=== PATIENT | female | born 1935 | race Caucasian/White ===

== ENCOUNTER → 2017-06-15 | Outpatient (CLI) | payer OTHER ==
[~2017-06-15] MED LIST: ATOR40TA PO; Adult Low Dose81 MG PO; CLOP75 PO; CRUTCH USE; Cipro500 MG PO; Colace100 MG PO; HIGH BP MED PO; HYDGUAL120 PO; IBUP800 PO; LEVE500 PO; LEVFLO500 PO; LISI20 PO; Lasix20 MG PO; METO100ER PO; METO50ER; METO50ER PO; NAPR220; NAPR220 PO; NITR100CA PO; OXYACE5T PO; PSYL5.85P PO; SULTRIDS PO; TRAM50 PO; VERA100; VERA100 PO; Verapamil ER100 MG PO; Verapamil ER200 MG PO
[2017-06-17 12:03] LABS: HPV Genotype 16 Not Detected (NOTDET); HPV Genotype 18 Not Detected (NOTDET)
[2017-06-22 19:18] LABS: HPV High Risk Other Not Detected (NOTDET)
[2017-06-27 12:16] LABS: Source CERVIX
== END | disposition home or self-care (01) ==
LOC: LAB SHORT 17:31 → OLS 17:31
PROVIDERS: Nurse Practitioner Women's Health
DX: Z12.72 Encounter for screening for malignant neoplasm of vagina (principal); Z91.89 Other specified personal risk factors, not elsewhere classified
CPT/HCPCS: 87624; G0123

== ENCOUNTER → 2018-06-19 | Outpatient (CLI) | payer OTHER ==
[2018-06-21 15:06] LABS: HPV 16 Negative (Negative); HPV 18 Negative (Negative); HPV OTHER HR TYPES Negative (Negative)
== END | disposition home or self-care (01) ==
LOC: LAB SHORT 17:38 → LAB 17:38
PROVIDERS: Nurse Practitioner Women's Health
DX: Z12.72 Encounter for screening for malignant neoplasm of vagina (principal); Z91.89 Other specified personal risk factors, not elsewhere classified
CPT/HCPCS: 87624; G0123

== ENCOUNTER 2019-02-04 07:34 | Observation (INO) | payer OTHER ==
[~2019-02-04] VITALS: Ht 152.4 cm; Wt 61.2 kg
[2019-02-04 07:54] LABS: BASOPHILS ABSOLUTE AUTO 0.05 K/mm3 (0.00-0.23); BASOPHILS PERCENT AUTO 1 % (0-2); EOSINOPHILS ABSOLUTE AUTO 0.21 K/mm3 (0.00-0.68); EOSINOPHILS PERCENT AUTO 3 % (0-6); Hematocrit 35.3 % (33.0-51.0); Hemoglobin 11.3 g/dL (11.5-16.0); IMMATURE GRAN ABSOLUTE AUTO 0.01 K/mm3 (0.00-0.10); IMMATURE GRAN PERCENT AUTO 0 % (0-1); LYMPHOCYTES ABSOLUTE AUTO 2.28 K/mm3 (0.84-5.20); LYMPHOCYTES PERCENT AUTO 37 % (21-46); MONOCYTES PERCENT AUTO 11 % (4-13); Mean Corpuscular HGB 32.9 pg (26.0-34.0); Mean Corpuscular Volume 103 fL (80-100); Mean Platelet Volume 8.9 fL (9.1-12.4); NEUTROPHILS ABSOLUTE AUTO 2.91 K/mm3 (1.96-9.15); NEUTROPHILS PERCENT AUTO 47 % (41-73); Platelet Count 164 K/mm3 (150-400); RDW Coefficient Variation 14.4 % (11.7-14.2); RDW Standard Deviation 54.6 fL (35.1-46.3); Red Blood Cell Count 3.43 M/mm3 (3.80-5.20); White Blood Cell Count 6.16 K/mm3 (4.00-11.30)
[2019-02-04 08:10] LABS: International Normalized Ratio 1.08; Prothrombin Time Results 11.4 Sec (9.7-11.5)
[2019-02-04] MEDS ORDERED: ZESTRIL40 M1 PO (08:12)
[2019-02-04] MEDS ORDERED: AMLODIPINE BESYL5 MG PO (08:12)
[2019-02-04] MEDS ORDERED: Keppra750 MG PO (08:12)
[2019-02-04] MEDS ORDERED: ATORVASTATIN CA40 MG PO (08:12)
[2019-02-04 08:15] LABS: Alanine Aminotransfer (ALT/SGP 29 U/L (12-78); Albumin, Blood 3.4 g/dL (3.4-5.0); Albumin/Globulin Ratio 1.1 (0.8-1.8); Alk Phos 97 U/L (50-136); Anion Gap 6 mmol/L (6-16); Aspartate Aminotrans (AST/SGOT 26 U/L (12-37); Blood Urea Nitrogen 12 mg/dL (8-24); Bun/Creatinine Ratio 16.7 (12.0-20.0); CO2, Blood 25 mmol/L (21-32); Calcium, Blood 8.9 mg/dL (8.5-10.1); Chloride, Blood 115 mmol/L (98-108); Creatinine, Blood 0.72 mg/dL (0.40-1.00); Glomerular Filtration Rate >60 (60-); Glucose, Blood 87 mg/dL (70-99); Potassium, Blood 3.4 mmol/L (3.5-5.5); Sodium, Blood 146 mmol/L (136-145); Total Protein, Blood 6.4 g/dL (6.4-8.2)
[2019-02-04] MEDS ORDERED: Flonase 0.05% N16 GM (11:46)
[2019-02-04] MEDS ORDERED: METO50ER PO (11:47)
[2019-02-04] MEDS ORDERED: FURO20 PO (11:50)
[2019-02-04 15:21] LABS: Source, Urine Clean Catch
[2019-02-04 15:25] LABS: Bilirubin, Urine Neg (Neg); Blood, Urine 1+ (Neg); Glucose Qualitative, Urine Neg (Neg); Ketones, Urine 1+ (Neg); Leukocyte Esterase, Urine Neg (Neg); Nitrite, Urine Neg (Neg); Protein, Urine Neg (Neg); Urobilinogen, Urine NORM (Normal)
[2019-02-04 15:55] LABS: Appearance, Urine Clear (Clear); Color, Urine Pale Yellow (P-Yellow)
[2019-02-04 15:57] LABS: Bacteria Not Seen /hpf; Red Blood Cells, Urine 0-2 /hpf (0-2); Squamous Epithelial Cells Not Seen /hpf (Few); White Blood Cells, Urine Not Seen /hpf (0-5)
--- NOTE | 2019-02-04 18:12 | NUR ---
CALLED DR GALLARDO- PT SBP 187 BUT HR 43. UNABLE TO GIVE METOPROLOL PER PREVIOUSLY ESTABLISHED PARAMETERS. METOPROLOL HELD, DR AWARE. NEW ORDER FOR PRN HYDRALIZINE FOR SBP GREATER THAN 190.
--- NOTE | 2019-02-04 18:40 | NUR ---
SHIFT SUMMARY- PT ADMITTED THROUGH THE ED. PT HAD EKG IN THE ED AFIB IN THE 50'S. PT PLACED ON TELE ON MED FLOOR AFIB cBBB 42-48. PT DENIES PAIN OR SOB. FAMLY STATES SHE HAS HAD AN INCREASE IN WEAKNESS OVER THE LAST FEW WEEKS. PT WAS BROUGHT IN AND ADMITTED FOR TIA. PT WEARING HER GLASSES HAS DIPLOPIA IF THEY ARE REMOVED, THIS IS CHRONIC. PT C/O IRRITATION AND PLUGGED EARS, LEFT EAR APEARS RED AND IRRITATED WHEN VIEWED WITH THE OTOSCOPE. PT STATED THAT HER RIGHT EAR IS HER GOOD EAR, THE EAR DRUM CAN NOT BE SEEN WITH THE OTOSCOPE. PT STATED SHE CANT HEAR WITHOUT HER HEARING AID. PT STATED SHE IS DEF IN THE LEFT EAR. 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 PT HAS BEEN UP TO THE BSC, HR INCREASED TO 64 WITH ACTIVITY, THEN WENT RIGHT BACK TO THE 40'S WHEN AT REST. PT LAST VITALS WERE HIGH DR NOTIFIED. SEE PREVIOUS NOTES FOR DETAILS. PT ALERT AND ORIENTED, POOR HISTORIAN. FAMILY AT THE BEDSIDE.
--- NOTE | 2019-02-05 06:21 | NUR ---
DR Giraldo updated PT has pulse as low as 36 and only as high as 43 this shift. TIA S?SX have resolved. Continued in AFIB BBB. No cardiac meds given this shift. Has Otf at HS. Denies acute distress. Speech clear. Mild cognitive deficits but pleasant and able to discuss some hx. Has echocardiogram pending.
[2019-02-05] MEDS ORDERED: FURO20 PO (11:55)
[2019-02-05] MEDS ORDERED: METO25ER PO (11:57)
[2019-02-05] MEDS ORDERED: AMOCLA875 PO (11:58)
--- NOTE | 2019-02-05 12:20 | NUR ---
PATIENT D/C'D TO HOME WITH SPOUSE. RX MEDICATIONS FAXED TO [facility]. D/C INSTRUCTIONS AND EDUCATION DISCUSSED WITH PATIENT AND COPY PROVIDED. MESSAGE LEFT WITH PCP'S SCHEDULING OFFICE, THEY ARE TO CALL PATIENT AT HOME WITH A FOLLOW UP APPT. PATIENT DENIES ANY FURTHER QUESTIONS OR CONCERNS.
== END 2019-02-05 12:24 | disposition home or self-care (01) ==
LOC: ER 07:34 → MEDS 07:35 → ENPENDDIS 02-05 10:50 → MEDS 02-05 12:24
PROVIDERS: Emergency Medicine; ADMIT Hospitalist
DX: R53.1 Weakness (principal); R35.0 Frequency of micturition; H70.91 Unspecified mastoiditis, right ear; I48.0 Paroxysmal atrial fibrillation; I25.10 Atherosclerotic heart disease of native coronary artery without angina pectoris; G45.9 Transient cerebral ischemic attack, unspecified; G31.84 Mild cognitive impairment of uncertain or unknown etiology; I10 Essential (primary) hypertension; M85.80 Other specified disorders of bone density and structure, unspecified site; Z93.0 Tracheostomy status; Z86.73 Personal history of transient ischemic attack (TIA), and cerebral infarction without residual deficits; Z88.1 Allergy status to other antibiotic agents; Z88.2 Allergy status to sulfonamides; Z88.5 Allergy status to narcotic agent; Z79.51 Long term (current) use of inhaled steroids; Z79.899 Other long term (current) drug therapy
CPT/HCPCS: 70450; 70496; 70551; 80053; 81001; 85025; 85610; 85730; 93005; 93010; 96372; 97110; 97161; 97165; 97535; 99285-25; G0378; J1650; Q9967

== ENCOUNTER 2019-05-05 08:51 | Inpatient (IN) | payer OTHER ==
[~2019-05-05] VITALS: Ht 152.4 cm; Wt 56.0 kg
[~2019-05-05 08:51] MED LIST changes: +AMLO10 PO; +AMOCLA875 PO; +ATORVASTATIN CA40 MG PO; +FURO20 PO; +Flonase 0.05% N16 GM; +Keppra750 MG PO; +METO25ER PO; +ZESTRIL40 M1 PO
[2019-05-05 10:42] LABS: BASOPHILS ABSOLUTE AUTO 0.04 K/mm3 (0.00-0.23); BASOPHILS PERCENT AUTO 0 % (0-2); EOSINOPHILS ABSOLUTE AUTO 0.01 K/mm3 (0.00-0.68); EOSINOPHILS PERCENT AUTO 0 % (0-6); Hematocrit 32.9 % (33.0-51.0); Hemoglobin 10.7 g/dL (11.5-16.0); IMMATURE GRAN ABSOLUTE AUTO 0.03 K/mm3 (0.00-0.10); IMMATURE GRAN PERCENT AUTO 0 % (0-1); LYMPHOCYTES ABSOLUTE AUTO 0.93 K/mm3 (0.84-5.20); LYMPHOCYTES PERCENT AUTO 9 % (21-46); MONOCYTES ABSOLUTE AUTO 0.54 K/mm3 (0.16-1.47); MONOCYTES PERCENT AUTO 5 % (4-13); Mean Corpuscular HGB Conc 32.5 g/dL (31.5-36.5); Mean Corpuscular Volume 102 fL (80-100); Mean Platelet Volume 9.4 fL (9.1-12.4); NEUTROPHILS ABSOLUTE AUTO 9.31 K/mm3 (1.96-9.15); NEUTROPHILS PERCENT AUTO 86 % (41-73); Platelet Count 196 K/mm3 (150-400); RDW Coefficient Variation 14.5 % (11.7-14.2); RDW Standard Deviation 54.2 fL (35.1-46.3); Red Blood Cell Count 3.24 M/mm3 (3.80-5.20); White Blood Cell Count 10.86 K/mm3 (4.00-11.30)
[2019-05-05] MEDS ORDERED: ELIQUIS2.5 M1 PO (10:43)
[2019-05-05 11:03] LABS: Alanine Aminotransfer (ALT/SGP 27 U/L (12-78); Albumin, Blood 3.8 g/dL (3.4-5.0); Alk Phos 97 U/L (50-136); Anion Gap 5 mmol/L (6-16); Aspartate Aminotrans (AST/SGOT 30 U/L (12-37); Bilirubin, Total 1.2 mg/dL (0.1-1.0); Blood Urea Nitrogen 23 mg/dL (8-24); Bun/Creatinine Ratio 24.9 (12.0-20.0); CO2, Blood 25 mmol/L (21-32); Calcium, Blood 9.6 mg/dL (8.5-10.1); Chloride, Blood 106 mmol/L (98-108); Creatinine, Blood 0.93 mg/dL (0.40-1.00); Globulin, Blood 3.8 g/dL (2.2-4.0); Glomerular Filtration Rate >60 (60-); Glucose, Blood 146 mg/dL (70-99); Potassium, Blood 4.1 mmol/L (3.5-5.5); Sodium, Blood 136 mmol/L (136-145); Total Protein, Blood 7.6 g/dL (6.4-8.2); Troponin I <0.015 ng/mL (0.000-0.040)
[2019-05-05] MEDS ORDERED: Vitamin D2000 UNIT PO (11:49)
[2019-05-05] MEDS ORDERED: B-121000 MC3 PO (11:49)
--- NOTE | 2019-05-05 14:25 | NUR ---
PT ARRIVED TO FLOOR FROM ED VIA STRETCHER AAOX3, FORGETFUL. AFIB ON TELE. MODERATE SOB NOTED AT REST; COARSE CRACKLES AUSCULATED THROUGHOUT; PT ON 4L O2 VIA NC, PULSE OX 91-93%. PITTING EDEMA NOTED TO B/L LOWER EXTREMITIES, LEGS ELEVATED ON PILLOW. PT & FAMILY ORIENTED TO ROOM, INSTRUCTED ON FALL PREVENTION MEASURES & USE OF CALL [place]. BED LOCKED & IN LOWEST POSITION, CALL [place] W/ IN REACH. WILL COMPLETE ADMISSION INFO & CONTINUE TO MONITOR.
--- NOTE | 2019-05-05 16:03 | NUR ---
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 STates she feels that something gets stuck in there., and that she has to cough and cough and finally dig it out. NPO
--- NOTE | 2019-05-05 16:32 | NUR ---
BED side swallow evaluation completed per nursing intervention. Pt had no difficulty. 2g Na diet changed to mechanical soft as pt described difficulty at home with hard/dry foods. Swallow evaluation orders placed.
--- NOTE | 2019-05-05 19:00 | NUR ---
SHIFT SUMMARY NO ACUTE CHANGES THROUGHOUT SHIFT. VS STABLE. PT STILL WITH MILD SOB AT REST. OPEN TOMORROW FOR ECHO, PT/OT/ST. BED ALARM ON FOR PT SAFETY. REPORT GIVEN TO LESLI HICKS.
[2019-05-06 01:16] LABS: PCO2 Arterial 37.4 mmHg (35-45); PO2 Arterial 361 mmHg (80-100); pH Blood Arterial 7.41 (7.35-7.45)
[2019-05-06 01:19] LABS: BASOPHILS ABSOLUTE AUTO 0.03 K/mm3 (0.00-0.23); BASOPHILS PERCENT AUTO 0 % (0-2); EOSINOPHILS ABSOLUTE AUTO 0.03 K/mm3 (0.00-0.68); EOSINOPHILS PERCENT AUTO 0 % (0-6); Hematocrit 29.1 % (33.0-51.0); Hemoglobin 9.5 g/dL (11.5-16.0); IMMATURE GRAN ABSOLUTE AUTO 0.17 K/mm3 (0.00-0.10); IMMATURE GRAN PERCENT AUTO 1 % (0-1); LYMPHOCYTES ABSOLUTE AUTO 1.46 K/mm3 (0.84-5.20); LYMPHOCYTES PERCENT AUTO 12 % (21-46); MONOCYTES ABSOLUTE AUTO 0.83 K/mm3 (0.16-1.47); MONOCYTES PERCENT AUTO 7 % (4-13); Mean Corpuscular HGB 33.6 pg (26.0-34.0); Mean Corpuscular HGB Conc 32.6 g/dL (31.5-36.5); Mean Corpuscular Volume 103 fL (80-100); Mean Platelet Volume 9.7 fL (9.1-12.4); NEUTROPHILS PERCENT AUTO 79 % (41-73); Platelet Count 168 K/mm3 (150-400); RDW Coefficient Variation 14.5 % (11.7-14.2); RDW Standard Deviation 54.4 fL (35.1-46.3); Red Blood Cell Count 2.83 M/mm3 (3.80-5.20); White Blood Cell Count 12.12 K/mm3 (4.00-11.30)
[2019-05-06 01:34] LABS: International Normalized Ratio 1.15; Prothrombin Time Results 12.2 Sec (9.7-11.5)
[2019-05-06 01:36] LABS: Bun/Creatinine Ratio 25.5 (12.0-20.0); Creatinine, Blood 0.98 mg/dL (0.40-1.00); Magnesium, Blood 2.4 mg/dL (1.6-2.4); Phosphorus, Blood 4.3 mg/dL (2.5-4.9); Potassium, Blood 3.6 mmol/L (3.5-5.5)
[2019-05-06 01:37] LABS: Source, Urine Catheter
[2019-05-06 01:39] LABS: Appearance, Urine Cloudy (Clear); Bilirubin, Urine Neg (Neg); Blood, Urine 4+ (Neg); Color, Urine Yellow (P-Yellow); Glucose Qualitative, Urine 2+ (Neg); Ketones, Urine 1+ (Neg); Leukocyte Esterase, Urine Neg (Neg); Nitrite, Urine Neg (Neg); Protein, Urine 4+ (Neg); Specific Gravity, Urine 1.015 (1.003-1.022); Urobilinogen, Urine NORM (Normal)
[2019-05-06 01:47] LABS: Red Blood Cells, Urine 25-50 /hpf (0-2)
[2019-05-06 01:48] LABS: Amorphous Heavy (0-Heavy); Bacteria Mod /hpf; Squamous Epithelial Cells Few /hpf (Few)
--- NOTE | 2019-05-06 03:02 | NUR ---
TRANSFER IN S/P CODE BLUE PT ARRIVED TO ICU 12 VIA BED AT 0040 S/P CARDIAC ARREST. PT IS INTUBATED UPON ARRIVAL. PT TRANSFERED TO ICU BED. PT IS NOT SEDATED AND NOT RESPONSIVE TO NOXIOUS STIMULI. VITAL SIGNS STABLE AT THIS TIME. VENT SETTINGS AC 16, TV 400, PEEP 5, FIO2 INITIALLY 100%, AND QUICKLY TITRATED DOWN TO 50%. OGT INSERTED AND PLACED TO LIS. GRULLON TEMP PROBE PLACED, UA SENT. LOW URINE OUTPUT NOTED. PT SPOUSE AT BEDSIDE, UPDATED TO PLAN OF CARE. SBW RESTRAINTS IN PLACE. DR MOREJON HERE TO SEE PT. WILL CONTINUE TO MONITOR.
[2019-05-06 04:24] LABS: Adenovirus Not Detected (NOT DETECT); Bordetella pertussis Not Detected (NOT DETECT); Chlamydophila pneumoniae Not Detected (NOT DETECT); Coronavirus 229E Not Detected (NOT DETECT); Coronavirus HKU1 Not Detected (NOT DETECT); Coronavirus NL63 Not Detected (NOT DETECT); Coronavirus OC43 Not Detected (NOT DETECT); Human Metapneumovirus Not Detected (NOT DETECT); Human Rhinovirus/Enterovirus Not Detected (NOT DETECT); Influenza A Not Detected (NOT DETECT); Influenza A/2009-H1 Not Detected (NOT DETECT); Influenza A/H1 Not Detected (NOT DETECT); Influenza A/H3 Not Detected (NOT DETECT); Influenza B Not Detected (NOT DETECT); Mycoplasma pneumoniae Not Detected (NOT DETECT); Parainfluenza Virus 1 Not Detected (NOT DETECT); Parainfluenza Virus 2 Not Detected (NOT DETECT); Parainfluenza Virus 3 Not Detected (NOT DETECT); Parainfluenza Virus 4 Not Detected (NOT DETECT); Respiratory Syncytial Virus Not Detected (NOT DETECT)
[2019-05-06 04:39] LABS: BASOPHILS ABSOLUTE AUTO 0.02 K/mm3 (0.00-0.23); BASOPHILS PERCENT AUTO 0 % (0-2); EOSINOPHILS ABSOLUTE AUTO 0.01 K/mm3 (0.00-0.68); EOSINOPHILS PERCENT AUTO 0 % (0-6); Hematocrit 27.2 % (33.0-51.0); Hemoglobin 8.9 g/dL (11.5-16.0); IMMATURE GRAN ABSOLUTE AUTO 0.06 K/mm3 (0.00-0.10); IMMATURE GRAN PERCENT AUTO 1 % (0-1); LYMPHOCYTES ABSOLUTE AUTO 1.03 K/mm3 (0.84-5.20); LYMPHOCYTES PERCENT AUTO 8 % (21-46); MONOCYTES ABSOLUTE AUTO 1.35 K/mm3 (0.16-1.47); MONOCYTES PERCENT AUTO 11 % (4-13); Mean Corpuscular HGB 32.7 pg (26.0-34.0); Mean Corpuscular HGB Conc 32.7 g/dL (31.5-36.5); Mean Platelet Volume 9.9 fL (9.1-12.4); NEUTROPHILS ABSOLUTE AUTO 10.18 K/mm3 (1.96-9.15); NEUTROPHILS PERCENT AUTO 80 % (41-73); Platelet Count 147 K/mm3 (150-400); RDW Coefficient Variation 14.6 % (11.7-14.2); RDW Standard Deviation 53.1 fL (35.1-46.3); Red Blood Cell Count 2.72 M/mm3 (3.80-5.20); White Blood Cell Count 12.65 K/mm3 (4.00-11.30)
[2019-05-06 04:43] LABS: Mean Corpuscular Volume 100 fL (80-100)
[2019-05-06 04:52] LABS: International Normalized Ratio 1.16; Prothrombin Time Results 12.3 Sec (9.7-11.5)
[2019-05-06 05:07] LABS: Magnesium, Blood 2.4 mg/dL (1.6-2.4)
[2019-05-06 05:08] LABS: Alanine Aminotransfer (ALT/SGP 53 U/L (12-78); Albumin, Blood 3.1 g/dL (3.4-5.0); Alk Phos 81 U/L (50-136); Anion Gap 10 mmol/L (6-16); Aspartate Aminotrans (AST/SGOT 66 U/L (12-37); Bilirubin, Total 1.4 mg/dL (0.1-1.0); Blood Urea Nitrogen 25 mg/dL (8-24); Bun/Creatinine Ratio 27.8 (12.0-20.0); CO2, Blood 24 mmol/L (21-32); Calcium, Blood 9.1 mg/dL (8.5-10.1); Chloride, Blood 108 mmol/L (98-108); Glomerular Filtration Rate >60 (60-); Glucose, Blood 128 mg/dL (70-99); Potassium, Blood 3.6 mmol/L (3.5-5.5); Sodium, Blood 142 mmol/L (136-145); Total Protein, Blood 6.1 g/dL (6.4-8.2)
--- NOTE | 2019-05-06 05:38 | NUR ---
SHIFT SUMMARY PT IS WAKING UP AND OPENING EYES TO NOXIOUS STIMULI. PT SQUEEZES HANDS UPON COMMAND. PT APPEARS COMFORTABLE AND IS TOLERATING VENT WELL. VENT SETTINGS AC 16, TV 400, PEEP 5, FIO2 40%. PT WITH THIN BLOODY SPUTUM VIA ETT SUCTION. PROPOFOL STARTED AT 30 MCG/KG/MIN PRIOR TO TAKING PT TO CT SCAN. PT TOLERATED CT SCAN WELL. PROPOFOL CURRENTLY INFUSING AT 10 MCG/KG/MIN AT THIS TIME. VITAL SIGNS STABLE, HR REMAINS AFIB 40-60'S, BP STABLE. GRULLON REMAINS IN PLACE WITH CLEAR YELLOW, LOW URINE OUTPUT. PT SPOUSE REMAINS AT BEDSIDE. WILL CONTINUE TO MONITOR AND REPORT OFF TO ONCOMING RN.
--- NOTE | 2019-05-06 10:30 | NUR ---
BEDSIDE REPORT TAKEN AT 0715. PT SEDATED ON PROPOFOL; PT AWAKE, AGITATED, EYES OPEN, NOT FOLLOWING DIRECTIONS, ATTEMPTING TO TAKE ETT OUT. PROPOFOL INCREASED TO 40MCG. DR MOREJON NOTIFIED; ATIVAN AND FENT ORDERED PRN. PT RHTHYM 40-50'S APPEARS TO BE A BLOCK; DR QUIROZ CONSULTED. EKG COMPLETED PER DR QUIROZ. DR QUIROZ AT BEDSIDE TO CONSENT PT FOR TEMP PACEMAKER. PT TAKEN AT 0945; TO BE COMPLETED BY DR PHAM. BP HYPOTENSIVE A MAP>65; ATIVAN 0.5MG GIVEN AND PROPOFOL DECREASED TO 30MCG. WILL CONT TO TITRATE DOWN TOLERATED AND SUPPLIMENT W ATIVAN/FENT NEEDED.
--- NOTE | 2019-05-06 11:56 | NUR ---
PT BACK FROM TELECOMMUNICATIONS LINE MECHANIC. TEMP PACEMAKER TO RIGHT IJ, VENOUS ACCESS SITE, PACER WIRES IN SWAN CATH COVER. WIRES SECURED TO CHEST W MULTIPLE OPSITES/STERILE. CATH AT 35CM. DR PHAM AT BEDSIDE. CATH MARKED W PEN; SO THAT MOVEMENT WOULD EASILY IDENTIFIED. PT TOLERATED PROCEDURE WELL. PT SEDATED ON 30MCG PROPOFOL, GRIMACES W ORAL CARE. PT 100% VENT PACED AT 59BMP. BP HYPOTENSIVE W MAP >65.
--- NOTE | 2019-05-06 14:44 | NUR ---
SMALL AMT OF PINK TINGED PUTUM SX'D FROM ETT. PT GIVEN FENT 25MCCG/ATIVAN 0.5MG IV FOR AGITATION, GRIMACING. VITAL HIGH PROTEIN TF STARTED AT 25CC/HR. POWERGLIDE 18G/10CM PLACED W/O DIFFICULTY TO ARSALAN. PT REMAINS 100% VENT PACED AT 59BPM.
--- NOTE | 2019-05-06 17:02 | NUR ---
UPDATE GIVEN TO DR MOREJON. BP'S REMAIN HYPOTENSIVE W MAPS>60/65. UNABLE TO DECREASE PROPOFOL LESS THAN 30MCG D/T INCREASED STACKING. DR MOREJON REVIEWED ECHO; LASIX TO BE HELD TONIGHT. PT REMAINS 100% PACED. IF PT REQUIRES PRESSORS SIDE IJ VENOUS PORT OFF OF PACER MAY BE USED PER DR MOREJON/DR PHAM.
--- NOTE | 2019-05-06 18:53 | NUR ---
PT REMAINED ON THE VENT AND ON PROPOFOL 30MCG. UNABLE TO TITRATE PROPOFOL DOWN EVEN WITH THE ADDITION OF ATIVAN AND FENT; PT WOULD STACK ON VENT, AND HAVE INCREASED AGITATION. SEDATION ADEQUATE AT 30MCG W PRN ATIVAN/FENT. TEMP PACER REMAINS INTACT AT 35CM. SET AT 5MV, RATE OF 60. PT HAS BEEN 100% VENT PACED T/O SHIFT. PT HAS BEEN HYPOTENSIVE T/O SHIFT W MOST MAPS > 65. LEVOPHED ORDERED AND IS ON STANDBY. ABLE TO GIVE THROUGH EXTRA VENOUS PORT ON TEMP PACER IF NEEDED PER DR MOREJON/DR PHAM. PT AFEBRILE, LUNGS COARSE T/O, SATS STABLE. PINK TO RED SECRETIONS SUCTIONED FROM ETT TOWARDS END OF SHIFT. DR MOREJON AWARE. LASIX HELD PER DR MOREJON. ANKLES HAVE 3+PITTING EDEMA. PT TOLERATING TUBE FEEDING; DUE TO BE TURNED TO GOAL RATE OF 35CC/HR AT 2200. POWERGLIDE STARTED TO ARSALAN D/T POOR ACCESS. FAMILY AT BEDSIDE FOR MOST OF SHIFT.
--- NOTE | 2019-05-06 19:45 | NUR ---
ASSUMED CARE BEDSIDE REPORT RECIEVED. PT IS INTUBATED AND SEDATED. VENT SETTINGS AC 16, TV 400, PEEP 5, FIO2 35%. PT SEDATED WITH PROPOFOL AT 30 MCG/KG/MIN. PT SQUEEZES HANDS UPON COMMAND. PT RESTLESS/AGITATED AT TIMES. VITAL SIGNS STABLE. TEMPORARY TRANSVENOUS PACER IN PLACE. 45 CM IN AT RIJ INSERTION SITE. VENTRICULAR PACED AT 60 BPM, 5mA. POWERGLIDE TO ARSALAN C/D/I. GRULLON TEMP PROBE IN PLACE WITH YELLOW OUTPUT NOTED. OGT IN PLACE WITH TF AT 25 ML/HR. NO RESIDUALS NOTED. SBW RESTRAINTS IN PLACE. FAMILY AT BEDSIDE, UPDATED TO PLAN OF CARE. WILL CONTINUE TO MONITOR.
[2019-05-07 03:34] LABS: BASOPHILS ABSOLUTE AUTO 0.04 K/mm3 (0.00-0.23); BASOPHILS PERCENT AUTO 1 % (0-2); EOSINOPHILS ABSOLUTE AUTO 0.35 K/mm3 (0.00-0.68); EOSINOPHILS PERCENT AUTO 4 % (0-6); Hematocrit 27.9 % (33.0-51.0); Hemoglobin 9.4 g/dL (11.5-16.0); IMMATURE GRAN ABSOLUTE AUTO 0.03 K/mm3 (0.00-0.10); IMMATURE GRAN PERCENT AUTO 0 % (0-1); LYMPHOCYTES ABSOLUTE AUTO 1.28 K/mm3 (0.84-5.20); LYMPHOCYTES PERCENT AUTO 16 % (21-46); MONOCYTES ABSOLUTE AUTO 0.66 K/mm3 (0.16-1.47); MONOCYTES PERCENT AUTO 8 % (4-13); Mean Corpuscular HGB 33.3 pg (26.0-34.0); Mean Corpuscular HGB Conc 33.7 g/dL (31.5-36.5); Mean Corpuscular Volume 99 fL (80-100); Mean Platelet Volume 9.8 fL (9.1-12.4); NEUTROPHILS ABSOLUTE AUTO 5.63 K/mm3 (1.96-9.15); NEUTROPHILS PERCENT AUTO 70 % (41-73); NRBC ABSOLUTE 0.03 K/mm3 (0.00-0.02); NRBC Auto 0.4 /100 WBC (0.0-0.2); Platelet Count 147 K/mm3 (150-400); RDW Coefficient Variation 14.4 % (11.7-14.2); RDW Standard Deviation 53.1 fL (35.1-46.3); Red Blood Cell Count 2.82 M/mm3 (3.80-5.20); White Blood Cell Count 7.99 K/mm3 (4.00-11.30)
[2019-05-07 03:52] LABS: Bun/Creatinine Ratio 27.4 (12.0-20.0); Calcium, Blood 8.2 mg/dL (8.5-10.1); Creatinine, Blood 0.95 mg/dL (0.40-1.00); Magnesium, Blood 2.2 mg/dL (1.6-2.4); Phosphorus, Blood 1.9 mg/dL (2.5-4.9); Potassium, Blood 3.2 mmol/L (3.5-5.5)
[2019-05-07 04:15] LABS: PCO2 Arterial 30.5 mmHg (35-45); PO2 Arterial 65.2 mmHg (80-100); pH Blood Arterial 7.54 (7.35-7.45)
--- NOTE | 2019-05-07 05:55 | NUR ---
SHIFT SUMMARY NO ACUTE CHANGES THIS SHIFT. PT REMAINS INTUBATED WITH VENT SETTINGS AC 16, TV 400, PEEP 5, FIO2 35%. PT REMAINS SEDATED WITH PROPOFOL AT 30 MCG/KG/MIN. PT MED WITH FENTANYL PRN ONCE THIS SHIFT. PT DID NOT TOLERATE SBT THIS AM. PT BECAME RESTLESS AND THRASHING IN BED. PT UNABLE TO FOLLOW COMMANDS DURING SBT. VITAL SIGNS HAVE REMAINS STABLE THIS SHIFT. TRANSVENOUS PACER REMAINS IN PLACE, SET AT 60 BPM, 5 mA. PG TO ARSALAN C/D/I. OGT REMAINS IN PLACE WITH TF AT 35 ML/HR GOAL RATE, NO RESIDUALS NOTED. GRULLON TEMP PROBE REMAINS IN PLACE WITH YELLOW OUTPUT NOTED. NO FAMILY AT BEDSIDE. WILL CONTINUE TO MONITOR AND REPORT OFF TO ONCOMING RN.
--- NOTE | 2019-05-07 09:00 | NUR ---
CARE ASSUMED REPORT RECEIVED, CARE ASSUMED AT 0700 FROM LESLI HAIDER. PT INTUBATED AND SEDATED. VITALS STABLE. SEE ASSESSMENT. SEE FLOWSHEET. PT MEDICATED NONVERBAL PAIN SCALE ELEVATED. PT'S DAUGHTER AND AT BEDSIDE THIS MORNING. UPDATE PROVIDED AND QUESTIONS ANSWERED. BILAT WRIST RESTRAINTS FOR SAFETY.
[2019-05-07 09:52] LABS: Alanine Aminotransfer (ALT/SGP 37 U/L (12-78); Aspartate Aminotrans (AST/SGOT 41 U/L (12-37)
[2019-05-07 11:25] LABS: Automated BF WBC Count 0.652 K/mm3 (0-999); Body Fluid WBC Count 652 /mm3 (0-999)
--- NOTE | 2019-05-07 12:01 | NUR ---
THORACENTESIS THORACENTESIS COMPLETE. APPROX 1 L FLUID TAKEN OFF. NOTIFIED BY BJ SAMUELS THAT PT HAS SMALL PNEUMOTHORAX AFTER PROCEDURE. ORDER FOR REPEAT CHEST X-RAY IN THREE HOURS. UPDATED DR. MOREJON. NO NEW ORDERS AT THIS TIME. VITALS STABLE. WILL CONTINUE TO CLOSELY MONITOR.
[2019-05-07 12:39] LABS: Glucose, Body Fluid 122 mg/dL; Lactate Dehydrogenase, Body Fl 157 U/L; Protein, Body Fluid 2.3 g/dL
[2019-05-07 12:49] LABS: RBC Count, Body Fluid 1120 /mm3 (0-0)
[2019-05-07 13:02] LABS: Appearance, Body Fluid Clear (Clear); Color, Body Fluid Yellow (None-Yellow); Total Cell Count, Body Fluid 100
--- NOTE | 2019-05-07 13:27 | NUR ---
PROVIDER COMMUNICATION/SEDATION TITRATION. DR. MOREJON TO BEDSIDE FOR ASSESSMENT AND TO SPEAK WITH FAMILY. FAMILY PROVIDED WITH UPDATE. PER DR. MOREJON, HOLD OFF ON SPONTANEOUS BREATHING TRIAL UNTIL REPEAT CHEST X-RAY IS COMPLETE. SEDATION HAS BEEN TITRATED DOWN THROUGHOUT MORNING IN ORDER TO ASSESS NEURO STATUS AND PT MINIMALLY RESPONSIVE. WITHDRAWS TO PAIN ONLY. AFTER DR. MOREJON LEFT BEDSIDE, PT BEGINS WAKING UP, MOVING HER BODY IN ATTEMPT TO REPOSITION HERSELF. SEVERAL FAMILY MEMBERS AT BEDSIDE AND ATTEMPTING TO COMMUNICATE WITH PATIENT. THIS RN ATTEMPTS TO HAVE PT OPEN EYES AND SQUEEZE HANDS, NONE OF WHICH SHE DOES WHEN REQUESTED. PT REPOSITIONED AND ENCOURAGED FAMILY TO PROVIDE LOW STIMULATION TO PATIENT. ENCOURAGED THEM TO PROVIDE SOOTHING INTERACTIONS SIMILAR TO THE TYPES OF THINGS THE PATIENT WOULD HAVE LIKED PRIOR TO BEING INTUBATED IF THEY WANT TO BE INVOLVED AND SUPPORTIVE. PT OPENED EYES ONE TIME SPONTANEOUSLY. WITHDRAWS TO PAIN, MOVES HEAD BACK AND FORTH IF AGITATED BY THE VENT, AND HAS FACIAL GRIMACE. AFTER BEING REPOSITIONED, PROPOFOL INCREASED AND PT'S NONVERBAL PAIN SCALE MUCH IMPROVED. PT RESTING WITH EYES CLOSED AND MINIMAL TENSION. FAMILY CONTINUES TO BE AT BEDSIDE. WILL ATTEMPT SECOND SEDATION VACATION THIS AFTERNOON AFTER X-RAY HAS BEEN COMPLETED AND READ BY DR. MOREJON.
--- NOTE | 2019-05-07 18:46 | NUR ---
SUMMARY REPEAT CHEST X-RAY SHOWED IMPROVING PNEUMOTHORAX SO NO FURTHER INTERVENTIONS AT THIS TIME. VITALS CONTINUE TO BE STABLE. HEART PACED NEARLY 100% OF THE TIME. PT HAS NOT REQUIRED LEVOPHED TO MAINTAIN BP. PT'S FIO2 DECREASED TO 30%, OTHERWISE VENT SETTINGS UNCHANGED. PT HAS BEEN KEPT ON PROPOFOL SINCE PREVIOUS NOTE, WITH FENTANYL A FEW TIMES FOR PAIN. LOW-MODERATE OUTPUT FROM GRULLON - SEE I/O FLOWSHEET. NO BOWEL MOVEMENTS TODAY. TOLERATING TURNS AND CARES THROUGHOUT DAY, CONTINUES TO WITHDRAW TO PAIN. PT'S SON AND DAUGHTER IN AND OUT OF ROOM AND CALM, SUPPORTIVE.
--- NOTE | 2019-05-07 19:35 | NUR ---
ASSESSMENT/ASSUMED CARE PT INTUBATED AND ON [facility] VENT. SEDATED WITH PROPOFOL. FAMILY AT BEDSIDE. PT WITHDRAWS FROM PAINFUL STIMULI. NOT FOLLOWING INSTRUCTIONS. LUNGS CLEAR TO UPPER LOBES BUT DECREASED IN THE BASES. VENT SETTINGS AC 16 TV 400 PEEP 5 FIO2 DOWN TO 25% BY RT. ORAL CARE DONE. SUCTIONED SMALL AMT WHITE SECRECTIONS VIA ET TUBE. HEART RATE 100% PACED AT 59. EXT PACER TO RIGHT IJ, DRSG INTACT. PACER SETTINGS RATE 60 VOLTS 5. BP STABLE. 4+ PITTING EDEMA NOTED TO LOWER EXT. BT+ HYPOACIVE. OG WITH TUBE FEED VITAL HP AT GOAL RATE OF 35 ML/HR, H2O 30 ML Q4HR. RESIDUAL ZERO. POWER GLIDE TO LEFT UPPER ARM SITE CLEAR. PROPOFOL INFUSING AT 20 MCQ/KG/MIN. IV 20 TO LEFT LOWER FOREARM SALINE LOCKED, SITE CLEAR, FLUSHED WITHOUT DIFFICULTY. GRULLON CATH PATENT DRAINING YELLOW URINE. BILAT WRIST RESTAINTS ON. PT REPOSITIONED.
--- NOTE | 2019-05-07 19:35 | NUR ---
REPORT TO LESLI BARGER TO ASSUME CARE
[2019-05-08 03:48] LABS: BASOPHILS ABSOLUTE AUTO 0.05 K/mm3 (0.00-0.23); BASOPHILS PERCENT AUTO 1 % (0-2); EOSINOPHILS ABSOLUTE AUTO 0.37 K/mm3 (0.00-0.68); EOSINOPHILS PERCENT AUTO 5 % (0-6); Hematocrit 26.9 % (33.0-51.0); IMMATURE GRAN ABSOLUTE AUTO 0.02 K/mm3 (0.00-0.10); IMMATURE GRAN PERCENT AUTO 0 % (0-1); LYMPHOCYTES ABSOLUTE AUTO 1.81 K/mm3 (0.84-5.20); LYMPHOCYTES PERCENT AUTO 23 % (21-46); MONOCYTES ABSOLUTE AUTO 0.79 K/mm3 (0.16-1.47); MONOCYTES PERCENT AUTO 10 % (4-13); Mean Corpuscular HGB 33.6 pg (26.0-34.0); Mean Corpuscular HGB Conc 33.5 g/dL (31.5-36.5); Mean Corpuscular Volume 100 fL (80-100); Mean Platelet Volume 9.7 fL (9.1-12.4); NEUTROPHILS ABSOLUTE AUTO 4.95 K/mm3 (1.96-9.15); NEUTROPHILS PERCENT AUTO 62 % (41-73); Platelet Count 138 K/mm3 (150-400); RDW Coefficient Variation 14.7 % (11.7-14.2); RDW Standard Deviation 54.5 fL (35.1-46.3); Red Blood Cell Count 2.68 M/mm3 (3.80-5.20); White Blood Cell Count 7.99 K/mm3 (4.00-11.30)
[2019-05-08 04:01] LABS: Anion Gap 5 mmol/L (6-16); Blood Urea Nitrogen 27 mg/dL (8-24); Bun/Creatinine Ratio 28.7 (12.0-20.0); CO2, Blood 27 mmol/L (21-32); Calcium, Blood 7.5 mg/dL (8.5-10.1); Chloride, Blood 112 mmol/L (98-108); Creatinine, Blood 0.94 mg/dL (0.40-1.00); Glomerular Filtration Rate >60 (60-); Glucose, Blood 103 mg/dL (70-99); Potassium, Blood 3.2 mmol/L (3.5-5.5); Sodium, Blood 144 mmol/L (136-145)
--- NOTE | 2019-05-08 04:34 | NUR ---
SEDATION VAC/WEANING PROPOFOL OFF WITH PRECEDEX AT 0.4 MCQ/KG/MIN FOR WEANING. RT AT BEDSIDE
[2019-05-08 05:57] LABS: PCO2 Arterial 26.4 mmHg (35-45); PO2 Arterial 89.4 mmHg (80-100); pH Blood Arterial 7.59 (7.35-7.45)
--- NOTE | 2019-05-08 05:57 | NUR ---
SHIFT SUMMARY PT RESTING QUIETLY. CONT ON VENT WITH CURRENT VENT SETTINGS AC 16 TV 400 PEEP 5 FIO2 25%. LUNGS CLEAR BUT DECREASED IN THE BASES. SUCTIONED SMALL AMT THIN SECRECTIONS VIA ET TUBE. WEANING CUT SHORT DUE TO RT NEEDING TO LEAVE FOR ER. WILL TRY AGAIN ON DAY SHIFT. WEANING DONE ON PRECEDEX. HEART RATE CONT 100% PACED. RIGHT IJ TEMP PACER WITH DRSG INTACT. BT+ HYPOACTIVE. PT TOLERATING TUBE FEED WITH MIN TO NO RESIDUALS. NO BM. TURNED Q2HR. CURRENTLY SEDATED WITH PROPOFOL AT 20 MCQ/KG/MIN. BILAT SOFT WRIST RESTRAINTS ON. BLOOD GLUCOSE DONE Q6HR. GRULLON CATH PATENT AND DRAINING. K RIDER INFUSING. REPORT TO ON COMING NURSE
--- NOTE | 2019-05-08 08:26 | NUR ---
[facility] of Care: Bedside report received from NOC shift Rn at 0700hr. Patient intubated and sedated. Ventilator to AC 16/400/5/25%, spO2-96-97%, tolerating vent without difficulty. Patient moves all extremities spontaneously and attempts to open eyes to verbal cues, but not following any other commands. Temporary pacemaker in place to rt IJ, secured and intact, 100% V-paced at 59-60 bpm's. Central line port to temporary pacer patent and intact. Power-glide to ARSALAN patent and intact infusing without difficulty. Propofol gtt infusing at 20mcg/kg/min. Crandall cath patent and intact, draining clear yellow urine. now at bedside. Bilateral soft wrist restraints in place to protect lines, tubes, cords. Will continue to monitor for pain, safety, comfort.
--- NOTE | 2019-05-08 18:01 | NUR ---
Shift Summary: Patient remains intubated. Sedated with propofol gtt at 20-25mcg/kg/min throughout majority of shift. Sedation vacation for approx 2hr starting at approx 1300hr this shift. Patient woke and was able to follow a few simple commands. Able to open eyes and squeeze hands to verbal stimuli. Patient also became restless and agitated at times during the sedation vacation, thrashing in bed, pulling on restraints. X1 prn fentanyl given with good effect. Precedex gtt infused at 0.2mcg/kg/hr, starting 45min before turning off propofol and turned off approx 1hr into sedation vacation. Ventilator switched to spontaneous mode for approx 20 minutes. When awake, patient able to take adequate breaths/tidal volumes, but tidal volumes would decrease to below 300 when patient not stimulated by staff to stay awake. Temporary pacemaker remains in place, 100% V-pacing throughout shift. Power-glide to ARSALAN remains patent and intact, infusing without difficulty. Crandall cath remains patent and intact, draining clear yellow urine. Patient appears calm and comfortable at this time. Will continue to monitor until report to NOC shift RN.
--- NOTE | 2019-05-08 19:15 | NUR ---
ASSUMED PT CARE FROM LESLI BENTLEY PT INTUBATED AND SEDATED. PROPOFOL INFUSING AT 25MCG/KG/MIN. PT APPEARS RESTLESS IN BED; MOVING ALL EXTREMITIES. DOES NOT OPEN EYES TO VERBAL STIMULI, DOES NOT FOLLOW ANY COMMANDS; HOWEVER, DOES WITHDRAWAL FROM PAINFUL STIMULI. VENT SETTINGS: AC 16, TV 400, PEEP 5, FIO2 25%; RR 19. TRANSVENOUS PACER NOTED TO BE SET WITH HR AT 60 AND VENTRICULAR OUTPUT AT 5 mA; CATHETER NOTED TO RIGHT IJ MEASURING APPROXIMATELY 47CM TO HUB. POWERGLIDE NOTED TO LEFT UPPER ARM; PATENT AND INFUSING. GRULLON CATHETER IS PATENT AND DRAINING TO GRAVITY; CORE TEMP NOTED TO BE 100.2 AT CHANGE OF SHIFT. WILL CONTINUE TO MONITOR PT; APPEARS COMFORTABLE AT THIS TIME. NO FAMILY AT BEDSIDE.
[2019-05-09 03:52] LABS: BASOPHILS ABSOLUTE AUTO 0.04 K/mm3 (0.00-0.23); BASOPHILS PERCENT AUTO 1 % (0-2); EOSINOPHILS ABSOLUTE AUTO 0.39 K/mm3 (0.00-0.68); EOSINOPHILS PERCENT AUTO 4 % (0-6); Hematocrit 27.1 % (33.0-51.0); Hemoglobin 8.8 g/dL (11.5-16.0); IMMATURE GRAN ABSOLUTE AUTO 0.04 K/mm3 (0.00-0.10); IMMATURE GRAN PERCENT AUTO 1 % (0-1); LYMPHOCYTES ABSOLUTE AUTO 1.84 K/mm3 (0.84-5.20); LYMPHOCYTES PERCENT AUTO 21 % (21-46); MONOCYTES ABSOLUTE AUTO 0.98 K/mm3 (0.16-1.47); MONOCYTES PERCENT AUTO 11 % (4-13); Mean Corpuscular HGB 32.8 pg (26.0-34.0); Mean Corpuscular HGB Conc 32.5 g/dL (31.5-36.5); Mean Corpuscular Volume 101 fL (80-100); Mean Platelet Volume 9.8 fL (9.1-12.4); NEUTROPHILS ABSOLUTE AUTO 5.56 K/mm3 (1.96-9.15); NEUTROPHILS PERCENT AUTO 63 % (41-73); Platelet Count 142 K/mm3 (150-400); RDW Coefficient Variation 14.7 % (11.7-14.2); RDW Standard Deviation 54.9 fL (35.1-46.3); Red Blood Cell Count 2.68 M/mm3 (3.80-5.20); White Blood Cell Count 8.85 K/mm3 (4.00-11.30)
[2019-05-09 04:08] LABS: Anion Gap 6 mmol/L (6-16); Blood Urea Nitrogen 30 mg/dL (8-24); Bun/Creatinine Ratio 32.6 (12.0-20.0); CO2, Blood 26 mmol/L (21-32); Calcium, Blood 7.7 mg/dL (8.5-10.1); Chloride, Blood 112 mmol/L (98-108); Creatinine, Blood 0.92 mg/dL (0.40-1.00); Glomerular Filtration Rate >60 (60-); Glucose, Blood 116 mg/dL (70-99); Phosphorus, Blood 3.1 mg/dL (2.5-4.9); Potassium, Blood 3.7 mmol/L (3.5-5.5); Sodium, Blood 144 mmol/L (136-145)
--- NOTE | 2019-05-09 05:50 | NUR ---
SBT/SEDATION VACATION PROPOFOL TURNED OFF AROUND 0330. PT QUICKLY WOKE UP AGITATED AND WAS NOT FOLLOWING COMMANDS. OBTAINED FENTANYL PER ORDERS IN WHICH PT RESPONDED WELL TO AND WASN'T AGITATED. SWITCHED TO SPONTANEOUS WITH PRESSURE SUPPORT 7/5; FIO2 25%. PT ABLE TO OPEN EYES SPONTANEOUSLY, WELL TO VERBAL STIMULI/COMMANDS. DIFFICULT TO ASSESS IF PT WAS FOLLOWING OTHER COMMANDS SHE WAS VERY RESTLESS AND MAKING GROSS MOTOR MOVEMENTS; THEREFORE, DIFFICULT TO TELL IF PT WAS PURPOSEFULLY SQUEEZING HAND. HOWEVER, SHE DID NOD HEAD "NO" WHEN ASKED IF IN PAIN. PT LEFT ON SPONTANEOUS WITH PRESSURE SUPPORT 7/5 AND 25% FIO2. PROPOFOL TURNED BACK TO 10MCG/KG/MIN FOR COMFORT OF ETT.
--- NOTE | 2019-05-09 06:23 | NUR ---
END OF SHIFT SUMMARY PT ONLY TOLERATED SPONTANEOUS MODE WITH PRESSURE SUPPORT 7/5 FOR ABOUT TWO HOURS AND THEN NEEDED SWITCHED BACK TO AC D/T NOT TOLERATING VENT WITH COUGHING AND GAGGING. PT WAS ALSO HAVING PURPOSEFUL MOVEMENT TOWARD ETT IN ATTEMPTS TO SELF EXTUBATE. PROPOFOL TURNED BACK TO 25MCG/KG/MIN AND PT SWITCHED BACK TO AC WITH SAME SETTINGS. PT APPEARS MORE COMFORTABLE NOW. SEE SBT/SEDATION VACATION NOTE FOR WEANING TRIAL. NEURO MEJIA, PT WAS ABLE TO OPEN EYES SPONTANEOUSLY, WELL TO VERBAL COMMANDS. PT NODDED HEAD "NO" TO PAIN. SHE SQUEEZED HAND ON COMMAND; HOWEVER, PT HAS ALSO BEEN RESTLESS AND MAKING GROSS MOTOR MOVEMENTS; THEREFORE, DIFFICULT TO ASSESS IF IT WAS PURPOSEFUL OR NOT. TRANSVENOUS PACER REMAINS IN PLACE; 47CM TO HUB WITH HR SET AT 60 AND VENTRICULAR OUTPUT SET AT 5mA. CENTRAL LINE FLUSHES ADEQUATELY; HOWEVER, DID NOT WANT TO DRAW BLOOD. POWERGLIDE TO LEFT UPPER ARM PATENT AND INFUSING, WELL DRAWS BLOOD NICELY. PT REMAINS EDEMATOUS TO BLE'S AND BUE'S. TEMP GRULLON CATHETER DRAINING GREEN, CLEAR URINE TO GRAVITY. TUBE FEEDING REMAINS AT GOAL OF 50MLS/HR WITH NO RESIDUALS NOTED THIS SHIFT. PT APPEARS COMFORTABLE AT THIS TIME. WILL CONTINUE TO MONITOR UNTIL REPORT IS HANDED OFF TO ONCOMING RN.
--- NOTE | 2019-05-09 07:15 | NUR ---
[facility] of Care: Patient intubated, sedated with propofol at 25mcg/kg/min. Occasionally moving all extremities, but appears calm and comfortable. Responds to noxious stimuli i.e. oral suctioning. Vent to AC- 16/400/5/25%, spO2-96%, tolerating vent mode without difficulty. Temporary pacemaker in place to rt IJ, secure and intact, 100% v-paced at a rate of 59, BP stable. Power-glide to ARSALAN patent and intact, infusing without difficulty. Crandall cath patent and intact drain clear yellow and slightly green tinged urine. Tube feed per OG is Vital High Protein at goal rate of 50ml/hr with 30ml H2O flush q4hr. Bilateral soft wrist restraints in place to protect lines, tubes, cords. Will continue to monitor.
[2019-05-09 10:50] LABS: Free Thyroxine 1.1 ng/dL (0.70-1.60)
[2019-05-09 10:52] LABS: Triiodothyronine, Free 1.03 pg/mL (2.18-3.98)
--- NOTE | 2019-05-09 10:59 | NUR ---
Extubation: Propofol gtt turned off at approx 0850hr. Patient slowly woke and became restless, appearing to be in pain. X1 prn fentanyl 25mcg's given with good effect noted. Patient remained off sedation vent changed to spontaneous mode at approx 1000hr. Patient again became restless, but staff and family were able to verbal re-orient and calm patient. Patient able to follow simple commands and nod head yes/no. Patient continue to pull good tidal volumes and respiratory rate 20-24 while calm. RT Ashley spoke with Dr. Martinez, who gave permission to extubate patient. Restraints removed at 1020hr. Deep oral suctioning and deep ET suctioning performed and ET tube removed at 1030hr. NC at 2-3LPM applied and deep oral suctioning performed as patient was instructed to cough. Patient remains drowsy but awake and following simple commands. spO2-98-99% on 2L/NC, no s/s of respiratory distress. Will continue to monitor.
--- NOTE | 2019-05-09 12:19 | NUR ---
Update/BiPAP: Patient's work of breathing slowly increased, respiratory rate increased to 30-32, use of accessory muscles, and patient answered "yes" to difficulty breathing. Spoke with RT Ramirez and Dr. Martinez. Patient then placed on BiPAP 10/6/35% FiO2. Patient now appears calm and comfortable, with decrease work of breathing. SpO2-95-98%. Family remains at bedside. Will continue to monitor.
--- NOTE | 2019-05-09 12:22 | NUR ---
Initial spiritual care note: Family appreciaitve of spiritual support and prayer. Deeply religion and very loving family. Hotel Assistant Manager making visits. Pt appears quite frail having recently been extubated. Family credits God for pt's progress so far. They report hope for recovery. Spouse appears well-supported. Coninued base engineer presence appreciaited. I will remain available.
[2019-05-09 14:01] LABS: Alanine Aminotransfer (ALT/SGP 27 U/L (12-78); Aspartate Aminotrans (AST/SGOT 29 U/L (12-37)
--- NOTE | 2019-05-09 16:31 | NUR ---
Update/Intubation: At approx 1430-45, patient's work of breathing steadily increasing along with increased agitation and restlessness. Patient nodded "yes" to pain at this time. Prn fentanyl given with little to no effect. Patient also had audible stridor from the upper airway that appeared to be increasing. When this began patient was on break from BiPAP for approx 10min and initially calm, with spO2-94-96% on 2L/NC. Patient then placed back on BiPAP at approx 1445hr, with spO2-94-98%, respirations in high 20's. This nurse then left room to notify Dr. Martinez of patient's condition. This nurse then contacted via [facility], informed that patient's spO2 decreased to low 80's. This nurse and Dr. Martinez then went to patient's room. Found that patient was hypoventilating, tidal volumes 150-200 and spO2- in the 80's. Dr. Martinez then spoke with family, and decision made to re-intubate patient. 1507: HR-81 with occasional pacing and ectopic beats. spO2-86%, BP-164-92. 1508: 4mg Versed given IV. 1509: ET tube place, + color change, and bilateral lung sounds. 7.5, 23cm at lip. 1511: 40mg propofol pushed IV by Dr. Martinez for sedation. HR-86, spO2-100%, bp-116/52. 1513: Vent set to AC-14/400/5/60% FiO2, spO2- 99%. OG tube placed by this RN. Placement of ET tube and OG tube verified via chest x-ray, read by Dr. Martinez. Instructed by Dr. Martinez to retract ET tube by 2cm, RT Ashley informed of need to retract ET tube. Patient now appears calm and comfortable, VSS, FiO2 decreased to 45%. Bilateral soft wrist restraints in place to protect lines, tubes, cords. Several family members back to room, questions answered to their satisfaction. Will continue to monitor.
[2019-05-09 17:47] LABS: PCO2 Arterial 29.5 mmHg (35-45); PO2 Arterial 144 mmHg (80-100); pH Blood Arterial 7.54 (7.35-7.45)
--- NOTE | 2019-05-09 19:04 | NUR ---
Shift Summary/report to NOC shift RN: Patient remained on vent settings AC 14/400/5, FiO2 decreased to 35. spO2 remains 98-100%. VSS stable, heart rhythm shows 100% v-paced at rate of 59. Patient appears calm and comfortable, propofol gtt remains at 25mcg/kg/min. Crandall cath remains patent and intact, draining clear yellow urine. Power-glide to lt upper arm remains patent and intact, infusing without difficulty. Bedside report given to day shift RN.
--- NOTE | 2019-05-09 19:20 | NUR ---
ASSUMED CARE BEDSIDE REPORT RECIEVED. PT IS INTUBATED AND SEDATED. VENT SETTINGS AC 14, TV 400, PEEP 5, FIO2 35%. VITAL SIGNS STABLE. TRANSVENOUS PACER IN PLACE TO RIGHT IJ, 45 CM IN, SET AT 60 BPM AT 5mA. CAPTURE NOTED ON MONITOR. POWERGLIDE TO ARSALAN C/D/I. PROPOFOL INFUSING AT 25 MCG/KG/MIN AND NS TKO. OGT IN PLACE, ORDERS TO RESTART TF AT 10 ML/HR PER DR JETT. GRULLON TEMP PROBE IN PLACE WITH CLEAR YELLOW OUTPUT NOTED. PT SPOUSE AT BEDSIDE. UPDATED TO PLAN OF CARE. SBW RESTRAINTS IN PLACE. WILL CONTINUE TO MONITOR.
[2019-05-10 03:40] LABS: BASOPHILS ABSOLUTE AUTO 0.01 K/mm3 (0.00-0.23); BASOPHILS PERCENT AUTO 0 % (0-2); EOSINOPHILS PERCENT AUTO 0 % (0-6); Hematocrit 25.9 % (33.0-51.0); Hemoglobin 8.6 g/dL (11.5-16.0); IMMATURE GRAN ABSOLUTE AUTO 0.03 K/mm3 (0.00-0.10); IMMATURE GRAN PERCENT AUTO 0 % (0-1); LYMPHOCYTES PERCENT AUTO 11 % (21-46); MONOCYTES PERCENT AUTO 1 % (4-13); Mean Corpuscular HGB 33.1 pg (26.0-34.0); Mean Corpuscular HGB Conc 33.2 g/dL (31.5-36.5); Mean Corpuscular Volume 100 fL (80-100); Mean Platelet Volume 9.6 fL (9.1-12.4); NEUTROPHILS PERCENT AUTO 87 % (41-73); Platelet Count 142 K/mm3 (150-400); RDW Coefficient Variation 14.5 % (11.7-14.2); RDW Standard Deviation 52.9 fL (35.1-46.3); White Blood Cell Count 8.24 K/mm3 (4.00-11.30)
[2019-05-10 03:56] LABS: Albumin, Blood 2.3 g/dL (3.4-5.0); Anion Gap 8 mmol/L (6-16); Blood Urea Nitrogen 30 mg/dL (8-24); Bun/Creatinine Ratio 33.4 (12.0-20.0); CO2, Blood 23 mmol/L (21-32); Calcium, Blood 7.9 mg/dL (8.5-10.1); Chloride, Blood 112 mmol/L (98-108); Glomerular Filtration Rate >60 (60-); Glucose, Blood 133 mg/dL (70-99); Potassium, Blood 3.2 mmol/L (3.5-5.5); Sodium, Blood 143 mmol/L (136-145)
--- NOTE | 2019-05-10 06:14 | NUR ---
SHIFT SUMMARY NO ACUTE CHANGES THIS SHIFT. PT REMAINS INTUBATED AND SEDATED. VENT SETTINGS UNCHANGED AT AC 14, TV 400, PEEP 5, FIO2 35%. VITAL SIGNS HAVE REMAINED STABLE. TRANSVENOUS PACER REMAINS C/D/I, 45 CM IN, SET AT 60 BPM, 5 mA. PROPOFOL INFUSING AT 35 MCG/KG/MIN, NS TKO, AND KCL IVPB. OGT IN PLACE WITH TF AT 10 ML/HR. NO RESIDUALS NOTED. GRULLON REMAINS IN PLACE WITH CLEAR/GREEN URINE OUTPUT NOTED. SBW RESTRAINTS REMAIN IN PLACE. NO FAMILY AT BEDSIDE. WILL CONTINUE TO MONITOR AND REPORT OFF TO ONCOMING RN.
--- NOTE | 2019-05-10 08:27 | NUR ---
Glynn of Care: Care assumed at 0700hr, bedside report received from NOC shift RN. Patient remains intubated/sedated, with propofol gtt at 35mcg/kg/min. Patient appears calm and comfortable, responds noxious stimuli, but not following and commands. Vent set to AC 14/400/5/30%, spO2-96-99%. HR shows 100% V-paced per temporary transvenous pacer to rt IJ, rate of 59, BP stable. Pacer site/bandage intact, 45cm exposed. Power-glide to ARSALAN patent and intact, infusing without difficulty. Crandall cath patent and intact, draining clear yellow/green tinged urine. RT Ross to room this morning, retracted ETT from 25cm to 23cm at lip, 7.5. X2 family members now at bedside. Will continue to monitor for pain, safety, comfort.
--- NOTE | 2019-05-10 18:22 | NUR ---
Several attempt to meet with family today. On each attempt, Mrs. Franks was alone in room. She is on vent and non-responsive. Audible prayer said at bedside. shake cutter services will remain available.
--- NOTE | 2019-05-10 18:34 | NUR ---
Shift Summary: Patient remained intubated/sedated throughout shift. Propofol gtt remained at 35mcg/kg/min throughout shift, x2 doses of prn fentanyl given for s/s of pain with good effect noted. At approx 1300hr, Dr. Perdomo to room to see patient and speak with family. Dr. Perdomo then changed vent settings from AC-14/400/5 to AC- 12/350/5, FiO2 decreased from 35% to 25% early in shift. Patient continues to tolerate vent settings without difficulty. Temporary pacer to rt IJ remains C/D/I, with 45cm exposed, 100% V-pacing throughout shift, BP remains stable and wnl. Power-glide to ARSALAN remains patent and intact, infusing without difficulty. Crandall cath remains patent and intact, draining clear yellow/green tinged urine. Bilateral soft wrist restraints remain in place to protect lines, tubes, cords. Several family members arrived to room at this time, this nurse informed then that update/plan would be given with/following bedside report. Will monitor until report to NOC shift RN.
--- NOTE | 2019-05-10 19:25 | NUR ---
ASSUMED CARE BEDSIDE REPORT RECIEVED. PT IS INTUBATED AND SEDATED. VENT SETTINGS AC 12, TV 350, PEEP 5, FIO2 25%. PT SEDATED WITH PROPOFOL AT 35 MCG/KG/MIN. VITAL SIGNS STABLE. TRANSVENOUS PACER TO RIJ C/D/I, SET AT 60 BPM AND 5mA. OGT IN PLACE WITH TF AT 25 ML/HR. GRULLON IN PLACE WITH CLEAR YELLOW OUTPUT NOTED. SBW RESTRAINTS IN PLACE. MANY FAMILY MEMBERS AT BEDSIDE. UPDATE AND PLAN OF CARE REVIEWED WITH FAMILY. WILL CONTINUE TO MONITOR.
[2019-05-11 03:54] LABS: BASOPHILS ABSOLUTE AUTO 0.01 K/mm3 (0.00-0.23); BASOPHILS PERCENT AUTO 0 % (0-2); EOSINOPHILS PERCENT AUTO 0 % (0-6); Hematocrit 23.6 % (33.0-51.0); Hemoglobin 7.6 g/dL (11.5-16.0); IMMATURE GRAN ABSOLUTE AUTO 0.06 K/mm3 (0.00-0.10); IMMATURE GRAN PERCENT AUTO 1 % (0-1); LYMPHOCYTES ABSOLUTE AUTO 0.72 K/mm3 (0.84-5.20); LYMPHOCYTES PERCENT AUTO 7 % (21-46); MONOCYTES PERCENT AUTO 5 % (4-13); Mean Corpuscular HGB 32.6 pg (26.0-34.0); Mean Corpuscular HGB Conc 32.2 g/dL (31.5-36.5); Mean Corpuscular Volume 101 fL (80-100); Mean Platelet Volume 9.6 fL (9.1-12.4); NEUTROPHILS ABSOLUTE AUTO 8.81 K/mm3 (1.96-9.15); NEUTROPHILS PERCENT AUTO 87 % (41-73); Platelet Count 151 K/mm3 (150-400); RDW Coefficient Variation 14.9 % (11.7-14.2); RDW Standard Deviation 55.2 fL (35.1-46.3); Red Blood Cell Count 2.33 M/mm3 (3.80-5.20)
[2019-05-11 04:12] LABS: Albumin, Blood 2.2 g/dL (3.4-5.0); Anion Gap 8 mmol/L (6-16); Blood Urea Nitrogen 41 mg/dL (8-24); Bun/Creatinine Ratio 42.1 (12.0-20.0); CO2, Blood 23 mmol/L (21-32); Chloride, Blood 112 mmol/L (98-108); Creatinine, Blood 0.98 mg/dL (0.40-1.00); Glomerular Filtration Rate 58 (60-); Glucose, Blood 162 mg/dL (70-99); Magnesium, Blood 2.4 mg/dL (1.6-2.4); Potassium, Blood 3.5 mmol/L (3.5-5.5); Sodium, Blood 143 mmol/L (136-145)
[2019-05-11 05:29] LABS: PCO2 Arterial 30.2 mmHg (35-45); PO2 Arterial 100 mmHg (80-100); pH Blood Arterial 7.46 (7.35-7.45)
--- NOTE | 2019-05-11 05:58 | NUR ---
SHIFT SUMMARY NO ACUTE CHANGES THIS SHIFT. PT REMAINS INTUBATED AND SEDATED. VENT SETTINGS AC 12, TV 350, PEEP 5, FIO2 25%. PT DID WELL WITH SEDATION VACATION AND BREATHING TRIAL THIS AM. PT REMAINED CALM AND FOLLOWED SIMPLE COMMANDS. PT SEDATED AT THIS TIME WITH PROPOFOL AT 40 MCG/KG/MIN. NS INFUSING TKO. VITAL SIGNS HAVE REMAINED STABLE. TRANSVENOUS PACER REMAINS INTACT TO RIGHT IJ, 45 CM INSERTED, SET AT 60 BPM, 5 mA. OGT REMAINS IN PLACE WITH TF AT 45 ML/HR GOAL RATE, NO RESIDUALS NOTED. GRULLON REMAINS IN PLACE WITH YELLOW OUTPUT NOTED. SBW RESTRAINTS IN PLACE. NO FAMILY AT BEDSIDE. WILL CONTINUE TO MONITOR AND REPORT OFF TO ONCOMING RN.
--- NOTE | 2019-05-11 09:57 | NUR ---
0930- PT WAS WHEELED TO THE AIRCRAFT DE ICER INSTALLER AT THIS TIME FOR PERMANENT PACEMAKER PLACEMENT.
--- NOTE | 2019-05-11 12:05 | NUR ---
PT BACK FROM HR GENERALIST. DRESSING NOTED TO THE LEFT UPPER CHEST- CLEAN DRY AND INTACT. AFEBRILE. PT IS STILL INTUBATED AND VENTED. AFEBRILE. PACEMAKER SETTINGS VVI RATE 60.
--- NOTE | 2019-05-11 14:30 | NUR ---
1410-SEEN BY DR. MADERA. UPDATED HIM OF PT'S STATUS.
--- NOTE | 2019-05-11 17:56 | NUR ---
SHIFT SUMMARY: PT IS STILL VENTED AND SEDATED WITH PROPOFOL AT 40MCG/KG/MIN. PT HAS BEEN MEDICATED FOR PAIN WITH FENTANYL AT THE BUSINESS CONTROL MANAGER AND IN THE ICU. PT STILL OPENS HER EYES TO VOICE AND FOLLOWING COMMANDS WHEN OFF SEDATION. PT HAD HER PERMANENT PACEMAKE PLACED TODAY. DRESSING TO LEFT CHEST HAS SLIGHT SHADOW NOTED, OTHERWISE STABLE. NO SWELLING NOTED. PT IS TOLERATING TUBE FEEDS WELL WITH VERY MINIMAL TO NO RESIDUALS. AFEBRILE.
--- NOTE | 2019-05-11 19:43 | NUR ---
RHYTHM CHANGE REPORT RECEIVED, CARE ASSUMED AT 183 FROM LESLI ALVARADO. PT INTUBATED AND SEDATED. HR 100% PACED AT CHANGE OF SHIFT. APPROX 191 RHYTHM NOTED TO NO LONGER BE PACED. HR 40'S, RHTYHM APPEARS TO BE AFIB/AFLUTTER. EKG OBTAINED AND AT THE TIME OF EKG, PACER SPIKES RETURNED INTERMITTENTLY. CALL PLACED TO DR. NORTH. ORDER FOR STAT CHEST X-RAY. EKG AND X-RAY VISUALIZED BY DR. NORTH. ERNA FROM [facility] TO BEDSIDE FOR PACEMAKER INTERROGATION. BLOOD PRESSURE STABLE AND PULSES STRONG REGARDLESS OF RHYTHM CHANGE.
--- NOTE | 2019-05-11 20:12 | NUR ---
UPDATE NOTIFIED BY DR. NORTH THAT PT WILL NEED TO GO BACK TO EGG WORKER. COMMUNITY LIVING INSTRUCTOR AND NURSING NARRATIVE WRITER NOTIFIED. BLOOD PRESSURE CONTINUES TO BE STABLE. HR RANGING FROM 40'S-80'S, AFIB. PULSES STRONG. PACER SPIKES OCCASIONAL.
--- NOTE | 2019-05-11 20:27 | NUR ---
ATTEMPTED TO NOTIFY FAMILY WITH NO ANSWER AND NO VOICEMAIL BOX SET UP AT THIS TIME
--- NOTE | 2019-05-11 23:19 | NUR ---
UPDATE PT RETURNED FROM STAFF PHYSICIAN AT THIS TIME. 100% PACED. BP STABLE. VENT SETTINGS UNCHANGED. SPOKE WITH DR. NORTH WHO REQUESTS THAT WE MINIMIZE DEGREE OF TURNS TO PREVENT DISLODGING OF PACEMAKER. NURSE NOTIFY ORDER PLACED. PACEMAKER SITE NOTED TO HAVE SMALL AMOUNT OF BLOOD ON DRESSING. RIGHT SIDED IJ DRESSING NOTED TO HAVE SMALL AMOUNT OF BLOOD UNDERNEATH DRESSING WHICH WAS PREVIOUSLY C/D/I. CONTINUES TO INFUSE TKO FOR PIGGYBACK MEDICATIONS. WILL CONTINUE TO CLOSELY MONITOR.
[2019-05-12 04:36] LABS: BASOPHILS PERCENT AUTO 0 % (0-2); EOSINOPHILS ABSOLUTE AUTO 0.01 K/mm3 (0.00-0.68); EOSINOPHILS PERCENT AUTO 0 % (0-6); Hemoglobin 8.1 g/dL (11.5-16.0); IMMATURE GRAN ABSOLUTE AUTO 0.11 K/mm3 (0.00-0.10); IMMATURE GRAN PERCENT AUTO 1 % (0-1); LYMPHOCYTES ABSOLUTE AUTO 0.78 K/mm3 (0.84-5.20); LYMPHOCYTES PERCENT AUTO 7 % (21-46); MONOCYTES ABSOLUTE AUTO 0.77 K/mm3 (0.16-1.47); MONOCYTES PERCENT AUTO 7 % (4-13); Mean Corpuscular HGB 33.1 pg (26.0-34.0); Mean Corpuscular HGB Conc 32.4 g/dL (31.5-36.5); Mean Corpuscular Volume 102 fL (80-100); Mean Platelet Volume 9.8 fL (9.1-12.4); NEUTROPHILS ABSOLUTE AUTO 9.45 K/mm3 (1.96-9.15); NEUTROPHILS PERCENT AUTO 85 % (41-73); Platelet Count 170 K/mm3 (150-400); RDW Coefficient Variation 14.7 % (11.7-14.2); RDW Standard Deviation 55.1 fL (35.1-46.3); Red Blood Cell Count 2.45 M/mm3 (3.80-5.20); White Blood Cell Count 11.12 K/mm3 (4.00-11.30)
[2019-05-12 04:54] LABS: Anion Gap 9 mmol/L (6-16); Blood Urea Nitrogen 48 mg/dL (8-24); Bun/Creatinine Ratio 54.1 (12.0-20.0); CO2, Blood 23 mmol/L (21-32); Calcium, Blood 7.9 mg/dL (8.5-10.1); Chloride, Blood 113 mmol/L (98-108); Creatinine, Blood 0.89 mg/dL (0.40-1.00); Glomerular Filtration Rate >60 (60-); Glucose, Blood 152 mg/dL (70-99); Magnesium, Blood 2.5 mg/dL (1.6-2.4); Phosphorus, Blood 3.5 mg/dL (2.5-4.9); Potassium, Blood 3.3 mmol/L (3.5-5.5); Sodium, Blood 145 mmol/L (136-145)
[2019-05-12 05:00] LABS: PCO2 Arterial 28.5 mmHg (35-45); PO2 Arterial 72.2 mmHg (80-100)
--- NOTE | 2019-05-12 06:40 | NUR ---
SUMMARY SINCE PREVIOUS NOTE, HEART HAS CONTINUED TO BE 100% PACED. BP STABLE. VENT SETTINGS UNCHANGED. PROPOFOL UNCHANGED. PT MEDICATED ON SEVERAL OCCASIONS FOR NONVERBAL PAIN SCALE, SEE EMAR. NO SEDATION VACATION OR WEAN THIS MORNING PER JUDGEMENT RELATED TO DR. NORTH'S WISH FOR STRICT PRECAUTIONS AND UNCERTAINTY REGARDING PT'S RESPONSE TO SEDATION TITRATION, WILL DISCUSS WITH DAY SHIFT RN FOR REASSESSMENT AND DISCUSSION WITH TEAM ON PLASTIC SURGERY COORDINATOR ROUNDING. PT HAS BEEN TURNED VERY SLIGHTLY, PER DR. NORTH REQUESTS TO PRESERVE PACEMAKER PLACEMENT. SEE REPEAT ASSESSMENTS OF PACEMAKER SITE AND CENTRAL LINE SITE. GRULLON HAD ADEQUATE OUTPUT THROUGHOUT NIGHT, SEE I/O FLOWSHEET. NO BOWEL MOVEMENT.
--- NOTE | 2019-05-12 08:30 | NUR ---
ASSUMED CARE OF PT AT 0700. REPORT FROM HERNÁN BALLESTEROS. PT INTUBATED AND SEDATED. VENT SETTINGS AC 12/350/5/25%. PROPOFOL INFUSING AT 40 MCG/KG/MIN. PT RESPONSES TO PAINFUL STIMULI. GRIMACES c CARE. COUGH AND GAG REFLEX. THICK WELCH SECRETIONS THROUGH ETT TUBE. LUNGS c CRACKLES ON LEFT, COARSE AND DIMINISHED ON RIGHT. PT P/W/D. PT 100% VENTRICULAR PACED. RATE HIGH 50'S. DRESSING INTACT, DRAINAGE MARKED. SHEATH TO RIGHT IJ. TUBE FEEDINGS AT GOAL, 35ML/HR c 30 ML q4 FLUSHES. RESIDUALS 10 ML THIS AM. GRULLON PATENT AND DRAINING TO GRAIVITY. VSS. WILL CONTINUE TO MONITOR.
--- NOTE | 2019-05-12 09:34 | NUR ---
DR CASSY MADERA TO ROOM FOR ASSESSMENT. SEDATION VACATION. PROPOFOL PLACED ON STANDBY. PT ABLE TO FOLLOW SIMPLE COMMANDS. WEAK COUGH. MOVES EXTREMITIES. CUFF DEFLATED, NO AIR LEAK DETECTED. O2 SATS REMAIN >95%. PT c THICK WELCH SECRETIONS. PLAN TO REMAIN INTUBATED TODAY AND REASSESS EXTUBATION VS TRACHEOSTOMY TOMORROW.
--- NOTE | 2019-05-12 17:15 | NUR ---
SHIFT SUMMARY PT REMAINS INTUBATED AND SEDATED. VENT SETTINGS AC 12/350/5/25%. PROPOFOL INFUSING AT 20 MCG/KG/MIN. FENTANYL GIVEN PRN. PACED c UNDERLYING AFIB. RATE 58-62. BP STABLE. PT c THICK WELCH SECRETIONS. PRELIMINARY MICRO, PSEUDOMONAS. ANTIBIOTICS CHANGED. TUBE FEEDINGS CONTINUE AT GOAL OF 35 ML/HR c 30ML q4 HR FLUSHES. RESIDUALS <30 ML. DRESSING TO SHEATH IN RIJ CHANGED, SHEATH LEFT IN PLACE PER DR MADERA. WILL CONTINUE TO MONITOR UNTIL REPORT TO ONCOMING NURSE.
--- NOTE | 2019-05-12 18:52 | NUR ---
REPORT BEDSIDE REPORT RECEIVED FROM LESLI GUTIRÉREZ. PT RESTING IN BED, OPENS EYES TO VOICE, NODS HEAD Y/N, SQUEEZE HANDS ON COMMAND AT THIS TIME. VENT SETTINGS CURRENTLY 12/VOL 350, PEEP 5, FIO2 25%, SAT 98%, RR 20 AND LUNGS CLEAR BUL, DIMINISHED BLL. HEART RATE IRREGULAR AFIB WITH RATE 59, PARTIALLY VENT PACED RHYTHM PER MONITOR, B/P 135/61 CURRENTLY. RN DISCUSSED EDEMA, SKIN CARE/TURNS R/T DISPLACING PACER, PT HAVING THICK WELCH SECRETIONS WHEN SUCTIONED, GOOD OUTPUT VIA GRULLON TODAY, LOW RESIDUALS AND VHP TF @ GOAL OF 35/HR. RN ALSO DISCUSSED PSEUDOMONAUS AND ANTIBIOTIC THERAPY. THIS RN ASSUMES CARE, FAMILY IN TO ROOM TO VISIT PT, PT NODS HEAD YES TO PAIN AND THIS RN WILL MEDICATE PER O.
[2019-05-13 03:43] LABS: BASOPHILS ABSOLUTE AUTO 0.02 K/mm3 (0.00-0.23); BASOPHILS PERCENT AUTO 0 % (0-2); EOSINOPHILS PERCENT AUTO 0 % (0-6); Hematocrit 24.8 % (33.0-51.0); Hemoglobin 8.1 g/dL (11.5-16.0); IMMATURE GRAN ABSOLUTE AUTO 0.14 K/mm3 (0.00-0.10); IMMATURE GRAN PERCENT AUTO 1 % (0-1); LYMPHOCYTES ABSOLUTE AUTO 0.91 K/mm3 (0.84-5.20); LYMPHOCYTES PERCENT AUTO 8 % (21-46); MONOCYTES ABSOLUTE AUTO 1.15 K/mm3 (0.16-1.47); MONOCYTES PERCENT AUTO 11 % (4-13); Mean Corpuscular HGB 33.2 pg (26.0-34.0); Mean Corpuscular HGB Conc 32.7 g/dL (31.5-36.5); Mean Corpuscular Volume 102 fL (80-100); Mean Platelet Volume 9.8 fL (9.1-12.4); NEUTROPHILS ABSOLUTE AUTO 8.73 K/mm3 (1.96-9.15); NEUTROPHILS PERCENT AUTO 80 % (41-73); NRBC ABSOLUTE 0.02 K/mm3 (0.00-0.02); NRBC Auto 0.2 /100 WBC (0.0-0.2); Platelet Count 185 K/mm3 (150-400); RDW Coefficient Variation 14.8 % (11.7-14.2); RDW Standard Deviation 55.5 fL (35.1-46.3); Red Blood Cell Count 2.44 M/mm3 (3.80-5.20); White Blood Cell Count 10.95 K/mm3 (4.00-11.30)
[2019-05-13 04:02] LABS: Anion Gap 6 mmol/L (6-16); Blood Urea Nitrogen 53 mg/dL (8-24); Bun/Creatinine Ratio 57.2 (12.0-20.0); CO2, Blood 24 mmol/L (21-32); Calcium, Blood 7.9 mg/dL (8.5-10.1); Chloride, Blood 115 mmol/L (98-108); Creatinine, Blood 0.93 mg/dL (0.40-1.00); Glomerular Filtration Rate >60 (60-); Glucose, Blood 136 mg/dL (70-99); Magnesium, Blood 2.5 mg/dL (1.6-2.4); Phosphorus, Blood 2.8 mg/dL (2.5-4.9); Potassium, Blood 4.1 mmol/L (3.5-5.5); Sodium, Blood 145 mmol/L (136-145)
[2019-05-13 06:15] LABS: PCO2 Arterial 30.1 mmHg (35-45); PO2 Arterial 93.6 mmHg (80-100); pH Blood Arterial 7.51 (7.35-7.45)
--- NOTE | 2019-05-13 06:44 | NUR ---
SHIFT SUMMARY PT RESTING IN BED THIS SHIFT WITH PROPOFOL @ 25MCG/KG/HR INFUSING VIA LT ARM POWERGLIDE, DURING SEDATION VACATION PT IS ABLE TO NOD Y/N, SQUEEZE HANDS, OPEN EYES, AND MOVE FEET. RUSTY RT, MANAGED PT DURING SEDATION VACATION AND STATES PT DID A LITTLE BETTER THAN YESTERDAY. PT ALSO HAS NS @ TKO INFUSING VIA RT IJ AND A SL TO RT WRIST. PT HEART RATE IRREGULAR, VENT PACER TO LT CHEST WALL WITH DRSG WHICH IS D/I. LUNGS CLEAR TO BUL AND DIMINISHED TO BLL, VENT AT AC 12, VOL 350, PEEP 5, FIO2 25%, SATS REMAIN >90%, THICH WELCH SPUTUM SUCTIONED FROM ET TUBE. BOWEL SOUNDS HYPOACTIVE AND PT CONTINUES TO RECEIVED HIGH VITAL PROTEIN @ GOAL RATE VIA OG. EDEMA CONTINUES TO SLOWLY IMPROVE. FENTANYL GIVEN X1 FOR PAIN AT BEGINNING OF SHIFT. NO BM SO MOM AND SUPPOSITORY GIVEN THIS SHIFT. VS REMAIN WNL AND SKIN INTACT. WILL CONTINUE TO MONITOR PT THE REST OF THIS SHIFT AND GIVE BEDSIDE REPORT TO DAY SHIFT RN.
--- NOTE | 2019-05-13 08:33 | NUR ---
ASSUMED CARE OF PT AT 0700. BEDSIDE REPORT FROM SHARYN BALLESTEROS. PT INTUBATED AND SEDATED. VENT SETTINGS AC 12/350/5/25%. PROPOFOL INFUSING AT 25 MCG/KG/MIN. PT RESPONSES TO PAINFUL STIMULI. GRIMACES c CARE. MEDICATED c FENTANYL PRN. LUNGS DIMINISHED IN BASES. PT CONTINUES TO HAVE LARGE, THICK WELCH SPUTUM FROM ETT. COUGH AND GAG REFLEX. PT VENTRICULAR PACED, RATE 60. HR 58-65, UNDERLYING AFIB, MOSTLY PACED. DRESSING TO PACER INTACT, DRAINAGE MARKED AND HAS NOT EXTENDED PAST BORDERS. SHEATH TO RIJ, INFUSING NS TKO. DRESSING INTACT c MINIMAL BLOODY DRAINAGE. VITAL HIGH PROTEIN INFUSING AT GOAL OF 35 ML/HR c 30 ML q4 HR FLUSHES. RESIDUALS 10 ML THIS AM. PT HAS NOT HAD BM SINCE ARRIVAL, ON BOWEL MEDS. SCDS IN PLACE. CONTINUE TO LIMIT TURNS TO SHIFTING OF HIPS AND ELEVATING ARMS TO ENSURE PACER WIRES DO NOT BECOME DISLODGED. RESTRAINTS IN PLACE. GRULLON PATENT AND DRAINING CLEAR YELLOW URINE TO GRAVITY. VSS. WILL CONTINUE TO MONITOR.
--- NOTE | 2019-05-13 13:05 | NUR ---
PT EXTUBATED c ASSISTANCE FROM NADINE BALLESTEROS AT 1200. PT PLACED ON BIPAP 16/10 30%. PT TOLERATING BIPAP WELL. LUNGS CLEAR. NO STRIDOR NOTED. VSS. DECADRON D/C'D BY DR MADERA. WILL CONTINUE TO MONITOR.
--- NOTE | 2019-05-13 17:42 | NUR ---
SHIFT SUMMARY PT EXTUBATED TODAY. PLACED IMMEDIATELY ON BIPAP, SETTINGS 16/10 30%. PT TOLERATING BIPAP WELL. LUNGS INTERMITTANTLY COARSE. PT ABLE TO COUGH UP THICK WELCH SECRETIONS c INSTRUCTION. PT RESPONSES TO VERBAL STIMULI. FOLLOWS SIMPLE COMMANDS. VENTRICULAR PACED, RATE 60, UNDERLYING AFIB. RATE 58-65 THIS SHIFT. VSS. CONTINUED SMALL TURNS THIS SHIFT TO ENSURE PACEMAKER WIRES REMAIN IN PLACE. PT DIURESED TODAY, 2700 CLEAR YELLOW URINE OUT. GRULLON PATENT AND DRAINING TO GRAVITY. ANTIBIOTICS CHANGED TO ZOSYN AFTER CULTURE RESULTS. WILL CONTINUE TO MONITOR UNTIL REPORT TO ONCOMING NURSE.
--- NOTE | 2019-05-13 18:55 | NUR ---
REPORT BEDSIDE REPORT RECEIVED FROM LESLI GUTIÉRREZ. PT RESTING IN BED, OPENS EYES TO VOICE BUT DOES NOT FOLLOW COMMANDS AT THIS TIME. PT KNOWN TO BE SELDOVIA. RN REPORTS PT WAS EXTUBATED TODAY AROUND NOON AND HAS BEEN ON BIPAP CONTINUOUSLY SINCE THEN WITH 16/10 & FIO2 30%, LUNGS TIGHT AND DIMINISHED TO BASES. VS WNL. SHE ALSO REPORTS PT HAS GOOD COUGH WITH THICK SECRETIONS. ABX CHANGED R/T LAB RESULTS AND NS INFUSING AT TKO PER RT IJ. SL TO RT WRIST AND MIDLINE TO ARSALAN. PT RECEIVED LAXIS TODAY AND HAD GOOD OUTPUT. DRSG REMAINS D/I. FAMILY HERE TO VISIT TODAY. THIS RN TO ASSUME CARE AT THIS TIME.
[2019-05-14 03:25] LABS: BASOPHILS ABSOLUTE AUTO 0.02 K/mm3 (0.00-0.23); BASOPHILS PERCENT AUTO 0 % (0-2); EOSINOPHILS ABSOLUTE AUTO 0.06 K/mm3 (0.00-0.68); EOSINOPHILS PERCENT AUTO 0 % (0-6); Hematocrit 27.2 % (33.0-51.0); Hemoglobin 8.5 g/dL (11.5-16.0); IMMATURE GRAN ABSOLUTE AUTO 0.19 K/mm3 (0.00-0.10); IMMATURE GRAN PERCENT AUTO 1 % (0-1); LYMPHOCYTES ABSOLUTE AUTO 2.23 K/mm3 (0.84-5.20); LYMPHOCYTES PERCENT AUTO 16 % (21-46); MONOCYTES PERCENT AUTO 11 % (4-13); Mean Corpuscular HGB 32.1 pg (26.0-34.0); Mean Corpuscular HGB Conc 31.3 g/dL (31.5-36.5); Mean Corpuscular Volume 103 fL (80-100); Mean Platelet Volume 9.5 fL (9.1-12.4); NEUTROPHILS ABSOLUTE AUTO 9.91 K/mm3 (1.96-9.15); NEUTROPHILS PERCENT AUTO 71 % (41-73); NRBC ABSOLUTE 0.05 K/mm3 (0.00-0.02); NRBC Auto 0.4 /100 WBC (0.0-0.2); Platelet Count 187 K/mm3 (150-400); RDW Coefficient Variation 15.1 % (11.7-14.2); RDW Standard Deviation 56.6 fL (35.1-46.3); Red Blood Cell Count 2.65 M/mm3 (3.80-5.20); White Blood Cell Count 14.01 K/mm3 (4.00-11.30)
[2019-05-14 03:39] LABS: Bun/Creatinine Ratio 49.6 (12.0-20.0); Calcium, Blood 8.3 mg/dL (8.5-10.1); Creatinine, Blood 0.97 mg/dL (0.40-1.00); Magnesium, Blood 2.7 mg/dL (1.6-2.4); Phosphorus, Blood 2.5 mg/dL (2.5-4.9); Potassium, Blood 3.4 mmol/L (3.5-5.5)
--- NOTE | 2019-05-14 05:22 | NUR ---
SHIFT SUMMARY PT RESTS IN BED THIS SHIFT, A&OX2, NODS Y/N AND FOLLOWS COMMANDS WHEN AWAKE. PT REMAINS ON BIPAP AT 16/10 & 30%, LUNGS CLEAR ROMEO, DIMINISHED ALL OTHER LOBES, SATS >90%. HEART RATE IRREGULAR, RHYTHM PACED WITH UNDERLYING AFIB NOTED, RATE 50-60s, PACER TO LT CHEST AND DRSG D/I WITH OLD DRNG NOTED. BOWEL SOUNDS HYPOACTIVE, NPO THIS SHIFT. SKIN HAS FEW SCATTERED BRUISES, SKIN TEAR TO LT OF MIDLINE CHEST WALL, PALE & DRY. DEPENDENT EDEMA NOTED TO EXTREMITIES. SL TO RT WRIST, POWERGLIDE TO LT UPPER ARM, AND RT IJ WITH NS @ TKO INFUSING. SCDs IN PLACE, SKIN CARE COMPLETED, AND BATH GIVEN THIS SHIFT. PT HAS MULTIPLE LAB VALUES OUT OF RANGE. WILL CONTINUE TO MONITOR PT THIS SHIFT.
--- NOTE | 2019-05-14 08:08 | NUR ---
ASSESSMENT- PT LETHARGIC, DOES OPEN EYES TO VERBAL STIMULUS. NO VERBAL REPLY, NOT FOLLOWING COMMANDS. EXPLAINED POC, ON BIPAP MASK, REMOVED BRIEFLY FOR ORAL CARE-TOLERATED WELL. LUNGS WITH DIMINISHED BREATH SOUNDS-ESPECIALLY DIMINISHED RIGHT SIDE. SPONTANEOUS COUGH. PACED RHYTHM. DSG LEFT CHEST WITH OLD DRAINAGE AND SWELLING PRESENT-PREVIOUS RN STATED UNCHANGED. NPO. ABDOMEN SOFT. UO VIA GRULLON. INCONTINENT SMALL AMOUNT BM-JOLLY CARE DONE AND REPOSITIONED. VSS. UO VIA GRULLON. RIJ CORDIS INTACT WITH NS AT 10 CC/HR.
[2019-05-14 08:26] LABS: Stool Occult Blood Guaiac 1 Neg (Neg)
[2019-05-14 09:43] LABS: PCO2 Arterial 36.8 mmHg (35-45); PO2 Arterial 89.8 mmHg (80-100); pH Blood Arterial 7.49 (7.35-7.45)
--- NOTE | 2019-05-14 10:44 | NUR ---
DR. DAVIS AT BEDSIDE. ASSESSED PT. SEE ORDERS. PT CHANGED TO NASAL CANNULA, ABG STABLE.
--- NOTE | 2019-05-14 12:11 | NUR ---
PT ABLE TO NOD HEAD NO WHEN QUESTIONED REGARDING PAIN. ATTEMPTING TO TALK, DIFFICULT TO UNDERSTAND. PACED RHYTHM, BP STABLE. FAMILY AT BEDSIDE
--- NOTE | 2019-05-14 13:10 | NUR ---
FEEDING TUBE PLACED RIGHT NARE WITHOUT PROBLEMS. PXCR DONE-CLEARED BY PA PER LYNDSAY.
--- NOTE | 2019-05-14 13:37 | NUR ---
RIJ CENTRAL LINE D/C WITHOUT PROBLEMS. PT TOLERATED WELL.VSS. MORE ALERT, TRYING TO SAY FEW WORDS. FAMILY AT BEDSIDE.
--- NOTE | 2019-05-14 15:36 | NUR ---
DR. DAVIS HERE-UPDATED. ORDERS FOR PCU STATUS. PT CALM, COOPERATIVE. RESPIRATIONS UNLABORED. PACED RHYTHM
--- NOTE | 2019-05-14 16:00 | NUR ---
TUBE FEEDING JEVITY 1.2 STARTED ORDERED-35 CC/HR. JOLLY AREA REDDENED, NYSTATIN ORDERED.
--- NOTE | 2019-05-14 17:16 | NUR ---
Spiritual care note: I met with pt's sister, Oj, at bedside. She was quite tearful and expressed great concern for pt's prognosis and QOL going forward. Provided gentle counseling center director and emotional affirmation. Pt slept throughout visit and did not respond to touch or voice. Oj states pt is Taoist and asked for prayer. Facilitated prayer with sister. I will remain available.
--- NOTE | 2019-05-14 17:32 | NUR ---
PT REPOSITIONED. SPONTANEOUS COUGHING, GOOD COUGH EFFORT. PACED. BP STABLE. HOB ELEVATED. SAYS FEW WORDS, RESPONSIVE MORE TO FAMILY THROUGH THE DAY. ARSALAN POWER GLIDE INTACT-DRESSING CHANGED. TOLERATING TUBE FEEDING. LEFT CHEST PACER DRSG UNCHANGED. RIJ DRESSING WITH SMALL AMOUNT DRAINAGE.
--- NOTE | 2019-05-14 20:00 | NUR ---
ASSUMPTION OF CARE: PT ABLE TO WAKE TO VERBAL STIMULI HOWEVER HAS MINIMAL VERBAL RESPONSES. IS CURRENTLY PACED, SBP IN THE 130S, HR IN THE 60S. SPO2 >90% ON 2L NC. LUNG SOUNDS ARE CLEAR BUT DIM IN BASES. PT IS CURRENTLY NPO BUT HAS DOBHOFF IN PLACE WITH JEVITY 1.2 RUNNING AT 35ML/HR. GOAL RATE IS 55MLS/HR. GRULLON IN PLACE DRAINING YELLOW URINE. RIJ PULLED TODAY. SOME SEROSANGIOUNESS FLUID ON GAUZE/DRESSING . DRESSING CHANGED THE DAYSHIFT RN. CURRENTLY C/D/I. WILL CONTINUE TO MONITOR. PT HAS POWERGLIDE TO ARSALAN AND 20G IN R WRIST. POWERGLIDE IS INFUSING AND R WRIST IV PATENT AND SL. BED IN LOWEST POSITION. WILL [facility]IN[facility] TO [facility]
--- NOTE | 2019-05-15 02:00 | NUR ---
CONTINUOUS TF INCREASED TO GOAL OF 55 MLS/HR
--- NOTE | 2019-05-15 05:48 | NUR ---
SUMMARY: PT RESTING MAJORITY OF SHIFT. TOLERATED BIPAP WELL. SPO2 >90%. LUNG SOUNDS CLEAR BUT DIM IN BASES. VSS-PACED. DOBHOFF IN PLACE WITH JEVITY AT GOAL OF 55MLS/HR. BLOOD SUGAR HAS REMAINED BELOW 180 ALL SHIFT. RIJ CNETRAL LINE SITE OOZING SMALL AMOUNT OF SANGIOUNESS FLUID. OTHERWISE INTACT. PACEMAKER SITE DRESSING REMAINS UNCHANGED WITH SMALL AMOUNT OF DRAINAGE. ARSALAN PG INFUSING WITH NS AT TKO. R WRIST IV PATENT AND SL. FOELY IN PLACE DRAINING YELLOW URINE. PT HAD ONE SMALL BM DURING NIGHT. CURRENTLY RESTING COMFORTABLY. WILL PASS REPORT TO ONCOMING RN
[2019-05-15 09:10] LABS: BASOPHILS ABSOLUTE AUTO 0.02 K/mm3 (0.00-0.23); BASOPHILS PERCENT AUTO 0 % (0-2); EOSINOPHILS ABSOLUTE AUTO 0.08 K/mm3 (0.00-0.68); EOSINOPHILS PERCENT AUTO 0 % (0-6); Hematocrit 28.9 % (33.0-51.0); Hemoglobin 8.8 g/dL (11.5-16.0); IMMATURE GRAN ABSOLUTE AUTO 0.31 K/mm3 (0.00-0.10); IMMATURE GRAN PERCENT AUTO 2 % (0-1); LYMPHOCYTES PERCENT AUTO 7 % (21-46); MONOCYTES ABSOLUTE AUTO 1.12 K/mm3 (0.16-1.47); MONOCYTES PERCENT AUTO 6 % (4-13); Mean Corpuscular HGB 32.4 pg (26.0-34.0); Mean Corpuscular HGB Conc 30.4 g/dL (31.5-36.5); Mean Platelet Volume 9.4 fL (9.1-12.4); NEUTROPHILS ABSOLUTE AUTO 15.28 K/mm3 (1.96-9.15); NEUTROPHILS PERCENT AUTO 85 % (41-73); NRBC ABSOLUTE 0.04 K/mm3 (0.00-0.02); NRBC Auto 0.2 /100 WBC (0.0-0.2); Platelet Count 222 K/mm3 (150-400); RDW Standard Deviation 57.9 fL (35.1-46.3); Red Blood Cell Count 2.72 M/mm3 (3.80-5.20); White Blood Cell Count 18.01 K/mm3 (4.00-11.30)
[2019-05-15 09:11] LABS: Mean Corpuscular Volume 106 fL (80-100)
[2019-05-15 09:29] LABS: Anion Gap 5 mmol/L (6-16); Blood Urea Nitrogen 36 mg/dL (8-24); Bun/Creatinine Ratio 43.3 (12.0-20.0); CO2, Blood 25 mmol/L (21-32); Calcium, Blood 8.5 mg/dL (8.5-10.1); Chloride, Blood 122 mmol/L (98-108); Creatinine, Blood 0.83 mg/dL (0.40-1.00); Glomerular Filtration Rate >60 (60-); Glucose, Blood 181 mg/dL (70-99); Phosphorus, Blood 2.1 mg/dL (2.5-4.9); Potassium, Blood 3.6 mmol/L (3.5-5.5); Sodium, Blood 152 mmol/L (136-145)
--- NOTE | 2019-05-15 09:47 | NUR ---
pt awake, moving around in bed, trying to speak but is uninteligble, follows some commands, lungs are clear, dim in bases, resp even and unlabored, has nc in mouth at this time as she was mouth breathing, no cough noted, dobhoff in place at goal rate, hrr, she is currently paced rhythm, see strip, slight edema noted to b/l le, ppp+1, IV site is power glide to left upper arm, piv to right wrist, btx4, abd round soft nontender, albrecht cath draining saman urine, skin has red liam area, otherwise c/w/d, maew, very weak, chuck, call light in reach.
--- NOTE | 2019-05-15 12:30 | NUR ---
ASSUMED CARE: PT RESTING IN BED, DOBHOFF IN PLACE, FAMILY AT BEDSIDE. NO ACUTE NEEDS OR CONCERNS AT THIS TIME.
--- NOTE | 2019-05-15 13:15 | NUR ---
PT HAS USED TO BED COLIN SEVERAL TIME THIS AM, SECOND TIME WITH NO RESULTS, DOING OK, MOUTH CARE WAS DONE, FAMILY IN ROOM MOST OF THE MORNING. REPOSITIONED HER A NUMBER OF TIMES. CALL LIGHT IN REACH.
--- NOTE | 2019-05-15 17:00 | NUR ---
PT'S REQUESTED HUMIDIFIER FOR PT'S FREQUENT BLOODY NOSES. ATTEMPTED TO DO THIS BUT SATURATIONS DROPPED INTO 80S AND BIPAP WAS REPLACED. SETTINGS 16/8 WITH 25% FIO2. SATS NOW MID 90S. NO FURTHER NEEDS OR CONCERNS AT THIS TIME.
--- NOTE | 2019-05-15 18:44 | NUR ---
SHIFT SUMMARY: FAMILY AT BEDSIDE. BIPAP REMOVED. NS AT 5L REPLACED AND HUMIDIFIER REMOVED. DOBHOFF IN PLACE WITH TUBING CHANGED. PT CONTINUES TO C/O DRY MOUTH. FREQUENT ORAL CARE. PCU STATUS FOR DESAT QUICKLY WITH ACTIVITY AND WEAKNESS. PACER SITE WITH IODINE NOTED. NO FURTHER NEEDS OR CONCERNS.
--- NOTE | 2019-05-15 22:33 | NUR ---
ASSUMED CARE OF PT, REPORT RCV'D FROM LESLI LYONS. PT ALERT, ORIENTED TO SELF/SITUATION, ABLE TO APPROPRIATELY RESPOND TO QUESTIONS AND EXPRESS NEEDS. PT VERY WEAK AND UNABLE TO ASSIST MUCH WITH REPOSITIONING. PT CURRENTLY ON 5L NC, PT REQUIRES INCREASED O2 WITH REPOSITIONING SHE QUICKLY DESATS AND IS SLOW TO RECOVER. DOBHOFF SECURED IN RIGHT NOSTRIL. JEVITY 1.2 INFUSING @ GOAL RATE OF 55 ML/HR WITH 75 ML Q4 FLUSH. PT HAS HAD MULTIPLE LOOSE BM, CONTINENT OF STOOL AND ABLE TO USE BEDPAN WITH LITTLE DIFFICULTY. SEE FULL SHIFT ASSESSMENT
[2019-05-16 04:32] LABS: BASOPHILS ABSOLUTE AUTO 0.03 K/mm3 (0.00-0.23); BASOPHILS PERCENT AUTO 0 % (0-2); EOSINOPHILS ABSOLUTE AUTO 0.07 K/mm3 (0.00-0.68); EOSINOPHILS PERCENT AUTO 0 % (0-6); Hematocrit 26.1 % (33.0-51.0); Hemoglobin 8.1 g/dL (11.5-16.0); IMMATURE GRAN ABSOLUTE AUTO 0.54 K/mm3 (0.00-0.10); IMMATURE GRAN PERCENT AUTO 3 % (0-1); LYMPHOCYTES ABSOLUTE AUTO 1.28 K/mm3 (0.84-5.20); LYMPHOCYTES PERCENT AUTO 7 % (21-46); MONOCYTES PERCENT AUTO 4 % (4-13); Mean Corpuscular HGB 33.1 pg (26.0-34.0); Mean Corpuscular Volume 107 fL (80-100); Mean Platelet Volume 9.6 fL (9.1-12.4); NEUTROPHILS ABSOLUTE AUTO 16.32 K/mm3 (1.96-9.15); NEUTROPHILS PERCENT AUTO 86 % (41-73); NRBC ABSOLUTE 0.05 K/mm3 (0.00-0.02); NRBC Auto 0.3 /100 WBC (0.0-0.2); Platelet Count 217 K/mm3 (150-400); RDW Standard Deviation 58.4 fL (35.1-46.3); Red Blood Cell Count 2.45 M/mm3 (3.80-5.20); White Blood Cell Count 19.04 K/mm3 (4.00-11.30)
[2019-05-16 04:45] LABS: Anion Gap 4 mmol/L (6-16); Blood Urea Nitrogen 32 mg/dL (8-24); Bun/Creatinine Ratio 46.7 (12.0-20.0); CO2, Blood 28 mmol/L (21-32); Calcium, Blood 8.4 mg/dL (8.5-10.1); Chloride, Blood 126 mmol/L (98-108); Creatinine, Blood 0.69 mg/dL (0.40-1.00); Glomerular Filtration Rate >60 (60-); Glucose, Blood 165 mg/dL (70-99); Magnesium, Blood 2.9 mg/dL (1.6-2.4); Potassium, Blood 3.2 mmol/L (3.5-5.5); Sodium, Blood 158 mmol/L (136-145)
--- NOTE | 2019-05-16 10:30 | NUR ---
Called by ICU staff with report of increasing respiratory effort and O2 demand. Pt is currently a FULL CODE and staff request family contact and conversation re: code status and goals of care. Visit made to ICU where I was able to speak with Chery tolbert and BANDAR. Plans made for family meeting at 1230 so Chery can gather pt's , sister and other family members. Report of above to ICU staff. Also case conferenced with RT and bedside RN caring for pt this am.
--- NOTE | 2019-05-16 13:00 | NUR ---
CHANGE IN CODE STATUS TO DNR/DNI per family wishes and pt indication of wishes after long family conference this afternoon. As prev planned I met with pt's , sister, didi, nuha and multiple other family members in ICU waiting area. After review of current status and concerns, pt's expressed wishes to remove bipap, "I'm tired.", "I am done" and options available for her care and and minimizing suffering. Pt is unable to process information needed to make medical decisions for herself. This was confirmed by RT, RN and family. Her and family have decided that they do not want her to be reintubated if she experiences worsening resp failure and they do not want her to have CPR if her heart were to stop. This was [facility] at length [facility] and confirmed amonst family members numerous times. and others still praying for a miracle and also understand that pt is tired and has been thru a lot since admitted. They want to continue treatment as is otherwise but are considering less agressive care. Multiple family members expressed desire for comfort care but her is not able to make that decision today. Family meeting results discussed with RT, bedside RN, ICU staff and Drs. BELCHER completed with pt's family and left on chart for Dr thornton. VO for code status change obtained and entered per Dr Walter. Much time spent supporting family and answering questions. They were given our number to contact and plan for daily Pal Care visits to support.
--- NOTE | 2019-05-16 18:14 | NUR ---
SHIFT NOTE 0730: CARE ASSUMED, ASSESSMENT COMPLETED. PT ON 10L/HI FLOW NC, SPO2 88-90%, INCREASED TO 14L BY RT. LS DIM IN BASES, COARSE ON R, PT EXPECTORATING YELLOW SPUTUM. HR 60'S, PACED, IRREGULAR, PT DENIES CHEST PAIN/DISCOMFORT. PT AWAKE, ALERT, ORIENTED TO SELF, PLACE, AND FAMILY, DENIES PAIN OR SOB AT THIS TIME. PT HAD LIQUID BM, LINENS CHANGED. JEVITY 1.2 INFUSING VIA DOBHOFF AT GOAL RATE 55ML/HR. 0900: PT UP TO CHAIR VIA LIFT, BIPAP REPLACED AT THIS TIME FOR DESAT MID 80'S ON 14L. SETTINGS 16/8, FIO2 40%, WILL TITRATE FIO2 TO KEEP SPO2 >90%. PT AWAKE AND ALERT, AT BEDSIDE. 1200: PT BECOMING MORE AND MORE DROWSY, WAKES TO VERBAL STIMULI, CONFUSED AT TIMES. ISTRATE IN TO SEE PATIENT, ATIVAN AND FENTANYL ADMINISTERED FOR ANXIETY RE: BIPAP MASK AND BACK PAIN, ATIVAN SEEMS TO INCREASE PT'S CONFUSION. DAUGHTER AND SISTER AT BEDSIDE ALONG WITH . 1400: PT HAS HAD 3 LIQUID STOOLS THIS SHIFT, RECTAL TUBE PLACED AT THIS TIME TO PROTECT SKIN, JOLLY AREA EXCORIATED. NYSTATIN AND CALMOSEPTINE APPLIED. MANY FAMILY MEMBERS INCLUDING , SISTER, DAUGHTER, AND OTHERS IN FOR MEETING WITH PALLIATIVE CARE, CODE STATUS CHANGED TO DNR WITH FULL MEDICAL TREATMENTS CONTINUED. ABX ADMINISTERED, PT REMAINS ON BIPAP, FENTANYL INTERMITTENTLY FOR COMFORT. TUBE FEED FLUSH INCREASED TO 200ML WATER Q4H PER ORDERS. 1530: PT BACK TO BED, REPOSITIONED. REMAINS DROWSY, WAKES TO TOUCH, FALLS QUICKLY BACK TO SLEEP, REMAINS CONFUSED. MEDICATED FOR RESTLESSNESS AND DISCOMFORT, BIPAP REMAINS ON. 1800: PT REPOSITIONED, ORAL CARE PROVIDED INTERMITTENTLY T/O SHIFT, MOUTH DRY. NOTIFIED OF BP, NEW ORDER, WILL MEDICATE PER MAY. SPO2 97% ON BIPAP 16/8 FIO2 70%. LS COARSE T/O, PT CONTINUES TO COUGH. HR 60'S IRREGULAR, RR 30'S AND SHALLOW. MULTIPLE CONVERSATIONS WITH PT'S FAMILY TODAY BY THIS RN, RT, AND PALLIATIVE RN REGARDING COMFORT MEASURES, PT REMAINS DNR/DNI WITH FULL MEDICAL TREATMENT. RECTAL TUBE AND GRULLON REMAIN IN PLACE, BOTH PATENT AND DRAINING. WILL REPORT TO ONCOMING SHIFT.
--- NOTE | 2019-05-17 02:21 | NUR ---
START OF SHIFT: REPORT FROM JORGE LUIS BALLESTEROS. PT LYING IN BED C/ BIPAP ON. VSS. PT WITH EPISODES OF AGITATION AND PULLS OFF BIPAP. PT PLACED IN BILAT SOFT WRIST RESTRAINTS. PT'S DAUGHTER TO BEDSIDE AT START OF SHIFT AND IS REMAINING WITH PT T/O NOC. PT RESPONDS WELL TO THE [place] TO RELIEVE EPISODES OF AGITATION. PT HOWEVER, IS REQUIRING MORE FREQUENT ADMINISTRATIONS. PT WILL SQUIRM SELF DOWN IN THE BED SO TO GET BIPAP HEADGEAR OFF. PT REPEATS OFTEN, "I DON'T WANT IT". PT PROVIDED ORAL CARE BUT DESATS VERY QUICKLY WITHOUT THE BIPAP. PT TOLERATES REPOSITIONING. WILL CONTINUE Q2' TURNS. MEDICATE FOR AGITATION. UPDATE FAMILY.
--- NOTE | 2019-05-17 03:05 | NUR ---
INCREASED 02 REQUIREMENTS: PT WITH INCREASED EPISODES OF AGITATION. BIPAP CURRENTLY: 20/10, RATE 14, FiO2 100%. SATS 95-96%. CHEST XRAY ORDERED THIS AM NOTED.
[2019-05-17 04:31] LABS: BASOPHILS ABSOLUTE AUTO 0.04 K/mm3 (0.00-0.23); BASOPHILS PERCENT AUTO 0 % (0-2); EOSINOPHILS ABSOLUTE AUTO 0.05 K/mm3 (0.00-0.68); EOSINOPHILS PERCENT AUTO 0 % (0-6); Hematocrit 26.2 % (33.0-51.0); Hemoglobin 7.9 g/dL (11.5-16.0); IMMATURE GRAN ABSOLUTE AUTO 1.19 K/mm3 (0.00-0.10); IMMATURE GRAN PERCENT AUTO 5 % (0-1); LYMPHOCYTES ABSOLUTE AUTO 1.41 K/mm3 (0.84-5.20); LYMPHOCYTES PERCENT AUTO 6 % (21-46); MONOCYTES ABSOLUTE AUTO 0.91 K/mm3 (0.16-1.47); MONOCYTES PERCENT AUTO 4 % (4-13); Mean Corpuscular HGB 32.2 pg (26.0-34.0); Mean Corpuscular HGB Conc 30.2 g/dL (31.5-36.5); Mean Corpuscular Volume 107 fL (80-100); Mean Platelet Volume 9.7 fL (9.1-12.4); NEUTROPHILS ABSOLUTE AUTO 20.23 K/mm3 (1.96-9.15); NEUTROPHILS PERCENT AUTO 85 % (41-73); NRBC ABSOLUTE 0.08 K/mm3 (0.00-0.02); NRBC Auto 0.3 /100 WBC (0.0-0.2); Platelet Count 205 K/mm3 (150-400); RDW Coefficient Variation 15.9 % (11.7-14.2); RDW Standard Deviation 61.2 fL (35.1-46.3); Red Blood Cell Count 2.45 M/mm3 (3.80-5.20); White Blood Cell Count 23.83 K/mm3 (4.00-11.30)
[2019-05-17 04:46] LABS: Anion Gap 3 mmol/L (6-16); Blood Urea Nitrogen 35 mg/dL (8-24); Bun/Creatinine Ratio 50.1 (12.0-20.0); CO2, Blood 28 mmol/L (21-32); Calcium, Blood 8.5 mg/dL (8.5-10.1); Chloride, Blood 126 mmol/L (98-108); Glomerular Filtration Rate >60 (60-); Glucose, Blood 145 mg/dL (70-99); Phosphorus, Blood 2.6 mg/dL (2.5-4.9); Potassium, Blood 3.8 mmol/L (3.5-5.5); Sodium, Blood 157 mmol/L (136-145)
--- NOTE | 2019-05-17 06:05 | NUR ---
PT'S , SISTER, AND DAUGHTER AT BEDSIDE. DR. GALLARDO AT BEDSIDE DISCUSSING PT'S CONDITION.
--- NOTE | 2019-05-17 06:30 | NUR ---
PT MADE COMFORT CARE. FAMILY AT BEDSIDE. FAMILY REQUESTED PT TO BE ON HIGH FLOW N/C AND WAS PLACED AFTER BIPAP REMOVED. RESTRAINTS OFF. TF OFF. LINO NOTIFIED.
--- NOTE | 2019-05-17 07:54 | NUR ---
Call back - Met with pt's spouse Zuhair, sister, and daughter. Zuhair asked for prayer and a verbal supplication was offered on behalf of the pt. Zuhair states, "Nothing short of a miraculous intervention will help her. If you believe it, so do we." The couple attend [facility] in [place] and would like the statistical clerk called. [employer] Equipment Operator was called and assured someone would be sent and I notified family. Space given for spouse to explore his gabe. We also discuss his grief of the past. "It gets harder everytime. I guess the older you get, the deeper your love gets." Family verbalized gratitude for the visit.
--- NOTE | 2019-05-17 08:28 | NUR ---
EXPIRATION NOTE CARE ASSUMED, ASSESSMENT COMPLETED, PT COMFORT CARE MEASURES ONLY. O2 15L/NC. DOBHOFF REMOVED, IVF DC'D, GRULLON AND RECTAL TUBES REMAIN IN PLACE. AM AND ORAL CARES COMPLETED, PT'S FAMILY AT BEDSIDE, FERRY HAND IN FOR A VISIT. PT MEDICATED WITH ROXANOL FOR RR 30'S AND RESTLESSNESS, GOOD RESULTS, RR SLOWED AND PATIENT CALMED, APPEARS COMFORTABLE. TIME OF 0820, FERRY HAND NOTIFIED AND AT BEDSIDE.
--- NOTE | 2019-05-17 08:53 | NUR ---
Livestock Inspector request. Pt's cpr instructor and family members were present. A passage of Scripture was recited followed by a prayer of comfort. Spouse Zuhair appears to be somewhat in shock, but has ample gabe/family support surrounding him. Others appeared to be grieving appropriately. Pastor Mendiola called [employer] for diamond picker. Update given to RNs.
--- NOTE | 2019-05-17 08:55 | NUR ---
DR. SKINNER NOTIFIED, [facility] CALLED PER FAMILY REQUEST. PT'S LEAN FACILITATOR AT BEDSIDE WITH FAMILY.
--- NOTE | 2019-05-17 10:17 | NUR ---
Pal Care Comfort Care visit made to at bedside after pt . His telephone interviewer and friend are also at bedside. Condolences and support offered to pt's . He appears to be grieving appropriately and has good family and restoration support. Discussed self care and rest needed.
--- NOTE | 2019-05-17 10:44 | NUR ---
MORTUARY PT TO [facility] WITH MORTUARY STAFF AT 0945, BELONGINGS SENT WITH .
== END 2019-05-17 08:20 | DRG 242 ==
LOC: ER 08:51 → ICUW 12:19 → PCU 12:19 → ICUW 05-06 00:38 → ICUE 05-14 06:59
PROVIDERS: Emergency Medicine; Family Medicine; Internal Medicine Cardiovascular Disease; Internal Medicine Critical Care Medicine; Nurse Practitioner Acute Care; ADMIT Internal Medicine
PROC: 0W993ZX Drainage of Right Pleural Cavity, Percutaneous Approach, Diagnostic (ICD-10-PCS; 2019-05-07)
PROC: 0BH17EZ Insertion of Endotracheal Airway into Trachea, Via Natural or Artificial Opening (ICD-10-PCS; 2019-05-09)
PROC: 5A1955Z Respiratory Ventilation, Greater than 96 Consecutive Hours (ICD-10-PCS; 2019-05-09)
PROC: 0JH604Z Insertion of Pacemaker, Single Chamber into Chest Subcutaneous Tissue and Fascia, Open Approach (ICD-10-PCS; principal; 2019-05-11)
PROC: 02HK3JZ Insertion of Pacemaker Lead into Right Ventricle, Percutaneous Approach (ICD-10-PCS; 2019-05-11)
PROC: 3E0132A Introduction of Anti-Infective Envelope into Subcutaneous Tissue, Percutaneous Approach (ICD-10-PCS; 2019-05-11)
DX: I13.0 Hypertensive heart and chronic kidney disease with heart failure and stage 1 through stage 4 chronic kidney disease, or unspecified chronic kidney disease (principal); J96.01 Acute respiratory failure with hypoxia; G92 Toxic encephalopathy; A41.9 Sepsis, unspecified organism; R65.20 Severe sepsis without septic shock; I50.33 Acute on chronic diastolic (congestive) heart failure; J18.9 Pneumonia, unspecified organism; I44.2 Atrioventricular block, complete; I48.20 Chronic atrial fibrillation, unspecified; G93.1 Anoxic brain damage, not elsewhere classified; I69.351 Hemiplegia and hemiparesis following cerebral infarction affecting right dominant side; Z51.5 Encounter for palliative care; I25.10 Atherosclerotic heart disease of native coronary artery without angina pectoris; N18.3 Chronic kidney disease, stage 3 (moderate); Z79.01 Long term (current) use of anticoagulants; F32.9 Major depressive disorder, single episode, unspecified; E87.6 Hypokalemia; D63.1 Anemia in chronic kidney disease; K21.9 Gastro-esophageal reflux disease without esophagitis; I46.9 Cardiac arrest, cause unspecified; E03.9 Hypothyroidism, unspecified
CPT/HCPCS: 0099U; 31500; 31720; 32555; 33207; 33210; 33215; 36415; 36600; 51702; 70450; 71045; 76937; 80048; 80053; 80069; 81001; 82270; 82330; 82803; 82945; 82947; 83605; 83615; 83735; 83880; 84100; 84145; 84155; 84157; 84439; 84443; 84450; 84460; 84481; 84484; 85025; 85610; 85730; 87040; 87070; 87077; 87086; 87102; 87186; 87205; 88108; 88305; 89051; 92610; 93005; 93010; 93306; 94002; 94003; 94640; 94660; 94760; 94762; 96365; 96367; 97110; 97163; 97167; 97530; 97535; 99152; 99153; 99285-25; A9270; A9270-GY; C1751; C1769; C1781; C1786; C1894; C1898; C9113; J0360; J0456; J0690; J0696; J0713; J1100; J1644; J1650; J1885; J1940; J1953; J1956; J2060; J2250; J2543; J2704; J3010; J3370; J3480; J7030; J7040; J7050; J7060